=== PATIENT | female | born 1945 | race Caucasian/White ===

== ENCOUNTER 2016-10-30 22:55 | Emergency (ER) | payer BC, MEDICARE ==
--- NOTE | 2016-10-31 01:20 | ER Document Report ---
ED General - General Chief Complaint: Abdominal Pain Stated Complaint: ABDOMINAL PAIN TRAVEL OUTSIDE OF THE [place] IN LAST 30 DAYS: No Past Medical History - Social History Patient has suicidal ideation: No Patient has homicidal ideation: No Renal/ Medical History: Denies: Hx Peritoneal Dialysis Physical Exam - Vital signs Vitals: Temp Pulse Resp BP Pulse Ox 97.8 F 67 16 143/68 H 96 10/30/16 23:01 10/30/16 23:01 10/30/16 23:01 10/30/16 23:01 10/30/16 23:01 Course - Vital Signs Vital signs: Temp Pulse Resp BP Pulse Ox 97.8 F 67 16 143/68 H 96 10/30/16 23:01 10/30/16 23:01 10/30/16 23:01 10/30/16 23:01 10/30/16 23:01
--- NOTE | 2016-10-31 01:39 | ER Document Report ---
ED GI/ - General Mode of Arrival: Ambulatory Information source: Patient TRAVEL OUTSIDE OF THE [place] IN LAST 30 DAYS: No - HPI Patient complains to provider of: Abdominal pain, Flank pain Onset: Other - Refer to HPI Notes Timing/Duration: Sudden Similar symptoms previously: No Recently seen / treated by doctor: No - General Chief Complaint: Abdominal Pain Stated Complaint: ABDOMINAL PAIN Time Seen by Provider: 10/31/16 01:31 Notes: Patient is a 71 year old female presenting to the ED for abdominal pain, nausea , and back pain. Patient took a Tylenol with codine and within an hour she states she had sweats, left flank pain, abdominal pain, and nausea that lasted for about 1 hour. Patient has not taken Tylenol with codine in the past. Patient fell yesterday and has broken right wrist which is why she was given the Tylenol. Patient denies any medical history except for a kidney stone about 10-15 years ago. Patient has a surgical history of cholecystectomy, appendectomy, tonsillectomy, hysterectomy, gastric bypass, left knee replacement , and a johnny placed in her right femur. Denies any PCP but states she went to the urgent care to have her wrist examined. Patient is allergic to penicillin. (MIGUEL LAI) Past Medical History - General Information source: Patient - Social History Smoking Status: Never Smoker Cigarette use (# per day): No Chew tobacco use (# tins/day): No Smoking Education Provided: No Frequency of alcohol use: None Drug Abuse: None Family History: None Patient has suicidal ideation: No Patient has homicidal ideation: No - Medical History Medical History: Negative Past Surgical History: Reports: Hx Appendectomy, Hx Cholecystectomy, Hx Gastric Bypass Surgery - 25+ years ago, Hx Hysterectomy, Hx Orthopedic Surgery - L knee replacement, Johnny in R femur, Hx Tonsillectomy Review of Systems - Review of Systems Constitutional: No symptoms reported, Chills EENT: No symptoms reported Cardiovascular: No symptoms reported Respiratory: No symptoms reported Gastrointestinal: See HPI, Abdominal pain, Nausea Genitourinary: No symptoms reported Female Genitourinary: No symptoms reported Musculoskeletal: See HPI, Back pain Skin: No symptoms reported Hematologic/Lymphatic: No symptoms reported Neurological/Psychological: No symptoms reported -: Yes All other systems reviewed and negative Physical Exam - Vital signs Interpretation: Normal - Vital signs Vitals: Temp Pulse Resp BP Pulse Ox 97.8 F 67 16 143/68 H 96 10/30/16 23:01 10/30/16 23:01 10/30/16 23:01 10/30/16 23:01 10/30/16 23:01 - Notes Notes: GENERAL: Alert, interacts well. No acute distress. HEAD: Normocephalic, atraumatic. EYES: Appear normal. Pupils equal, round, and reactive to light. ENT: Moist mucus membranes, tongue midline. NECK: Full range of motion. Supple. Trachea midline. LUNGS: Clear to auscultation bilaterally, no wheezes, rales, or rhonchi. No respiratory distress. HEART: Regular rate and rhythm. No murmurs, gallops, or rubs. ABDOMEN: Obese. Soft, non-tender. Non-distended. Normal bowel sounds. BACK: No CVA tenderness to percussion. EXTREMITIES: Moves all 4 extremities spontaneously. Normal strength. No edema. Brace on the right wrist/forearm. NEUROLOGICAL: Alert and oriented x3. Normal speech. No focal neurological deficits. GSC 15. PSYCH: Normal affect, normal mood. SKIN: Warm, dry, normal turgor. No rashes or lesions noted. (MIGUEL LAI) Discharge - Discharge Clinical Impression: Adverse reaction to codeine Qualifiers: Encounter type: initial encounter Qualified Code(s): T40.2X5A - Adverse effect of other opioids, initial encounter Condition: Stable Disposition: HOME, SELF-CARE Additional Instructions: Your abdomen discomfort was most likely due to an adverse reaction to codeine. Take Tylenol and ibuprofen for your wrist pain if needed. Follow-up with your doctor if not improving. RETURN TO THE EMERGENCY ROOM IF ANY NEW OR WORSENING SYMPTOMS. Scribe Attestation: 10/31/16 02:54 I personally performed the services described in the documentation, reviewed and edited the documentation which was dictated to the scribe in my presence, and it accurately records my words and actions. (CELESTE JONES) Scribe Documentation - Scribe Written by Avelino:: Avelino Palacios, 10/31/2016 1:50 acting as scribe for :: Amber
[2016-10-31] MEDS ORDERED: ONDANSETRON ODT 4 MG TAB (6 TAB/DSPK) PO PRN (01:40)
[2016-10-31 02:21] LABS: APPEARANCE,URINE SLIGHTLY-CLOUDY; BILIRUBIN,URINE NEGATIVE (NEGATIVE); GLUCOSE, URINE NEGATIVE (NEGATIVE); KETONES,URINE NEGATIVE (NEGATIVE); LEUKOCYTE ESTERASE,URINE TRACE (NEGATIVE); NITRITE,URINE NEGATIVE (NEGATIVE); PROTEIN,URINE NEGATIVE (NEGATIVE); URINE SPECIFIC GRAVITY 1.006
[2016-10-31 03:08] VITALS: BP 141/62
== END 2016-10-31 03:08 | disposition home or self-care (01) ==
LOC: ER 22:55
DX: T40.2X5A Adverse effect of other opioids, initial encounter (principal); R10.9 Unspecified abdominal pain; R11.0 Nausea; M54.9 Dorsalgia, unspecified
CPT/HCPCS: 81001; 99284

== ENCOUNTER → 2019-06-21 | Outpatient (CLI) | payer MEDICARE ==
--- NOTE | 2019-06-21 12:22 | RADIOLOGY REPORT (SQ) ---
EXAM DESCRIPTION: CT CHEST WITHOUT COMPLETED DATE/TIME: 06/21/2019 9:28 am REASON FOR STUDY: (R91.8)OTHER NONSPECIFIC ABNORMAL FINDING OF LUNG FIELD R91.8 OTHER NONSPECIFIC A BNORMAL FINDING OF LUNG FIELD COMPARISON: [facility] chest 02/20/2010 TECHNIQUE: CT scan performed of the chest without intravenous contrast. Images reviewed with lung, soft tissue and bone windows. Reconstructed coronal and sagittal MPR images reviewed. All images st ored on PACS. All CT scanners at this facility use dose modulation, iterative reconstruction, and/or weight based d osing when appropriate to reduce radiation dose to as low as reasonably achievable (ALARA). [facility]: Dose Right [facility]: CareDose [facility]: Dose Right [facility]: Teradose 4D [facility]: Smart [place] RADIATION DOSE: CT Rad equipment meets quality standard of care and radiation dose reduction techniq ues were employed. CTDIvol: 12.5 mGy. DLP: 449 mGy-cm. mGy. LIMITATIONS: No technical limitations. FINDINGS: LUNGS AND PLEURA: Multiple calcified granulomas are present, unchanged from chest film . No worrisome pulmonary nodules. No acute infiltrates. No pleural effusion or pneumothorax. Minimal left basilar scarring adjacent to old healed lower rib fractures. HILAR AND MEDIASTINAL STRUCTURES: Multiple calcified hilar and mediastinal lymph nodes from old granu lomatous disease HEART AND VASCULAR STRUCTURES: Ascending thoracic aorta is 4.4 cm diameter. There is calcification a t the aortic valve, aortic stenosis may be present. Heavily calcified mitral annulus. No significan t coronary calcifications or pericardial effusion UPPER ABDOMEN: Gastric bypass. Post cholecystectomy. Liver and spleen calcified granulomas THYROID AND OTHER SOFT TISSUES: No masses. No adenopathy. BONES: No significant finding. HARDWARE: None in the chest. OTHER: No other significant findings. IMPRESSION: Granulomatous disease Possible aortic stenosis, ectasia ascending thoracic aorta with calcified aortic valve TECHNICAL DOCUMENTATION: JOB ID: [id number] Quality ID # [id number]: Final reports with documentation of one or more dose reduction techniques (e.g., Au tomated exposure control, adjustment of the mA and/or kV according to patient size, use of iterative reconstruction technique) 2010 [employer]- All Rights Reserved Reading location - IP/workstation name: [email or web address]
== END ==
LOC: RAD 08:54
PROVIDERS: ATTEND Internal Medicine Pulmonary Disease
DX: R91.8 Other nonspecific abnormal finding of lung field (principal)
CPT/HCPCS: 71250

== ENCOUNTER 2019-09-08 12:17 | Inpatient (IN) | payer MEDICARE ==
--- NOTE | 2019-09-08 13:09 | ER Document Report ---
Entered by KRISHNA GRAY SCRIBE 09/08/19 [id number] Acting as scribe for:CELESTE JONES MD ED General - General Chief Complaint: Knee Injury Stated Complaint: LEFT KNEE PAIN Time Seen by Provider: 09/08/19 12:54 Information source: Patient Notes: This 74-year-old female presents to the emergency department complaining of a left knee injury that occurred at home just prior to arrival. Patient explains that she fell when she was going to the bathroom. Patient said that her legs gave out and she landed on her left knee. Patient describes the pain as tingling when sitting still. Patient states that she has had a total knee replacement on her left knee. Patient denies fever. TRAVEL OUTSIDE OF THE [place] IN LAST 30 DAYS: No - Related Data Allergies/Adverse Reactions: codeine Allergy (Verified 09/08/19 14:27) Penicillins Allergy (Verified 09/08/19 14:27) Past Medical History - General Information source: Patient - Social History Smoking Status: Current Every Day Smoker Cigarette use (# per day): Yes - 1/2 pack per day Chew tobacco use (# tins/day): No Family History: None Patient has homicidal ideation: No Past Surgical History: Reports: Hx Appendectomy, Hx Cholecystectomy, Hx Gastric Bypass Surgery - 25+ years ago, Hx Hysterectomy, Hx Orthopedic Surgery - L knee replacement, Johnny in R femur, Hx Tonsillectomy Review of Systems - Review of Systems Constitutional: See HPI. denies: Fever EENT: No symptoms reported Cardiovascular: No symptoms reported Respiratory: No symptoms reported Gastrointestinal: No symptoms reported Genitourinary: No symptoms reported Female Genitourinary: No symptoms reported Musculoskeletal: See HPI, Other - Left knee injury Skin: No symptoms reported Hematologic/Lymphatic: No symptoms reported Neurological/Psychological: No symptoms reported -: Yes All other systems reviewed and negative Physical Exam - Vital signs Vitals: Temp Pulse Resp BP Pulse Ox 98.0 F 66 17 159/65 H 98 09/08/19 12:29 09/08/19 12:29 09/08/19 12:29 09/08/19 12:29 09/08/19 12:29 - Notes Notes: Physical Exam: General: Alert, appears well. Pleasant. HEENT: Normocephalic. Atraumatic. PERRL. Extraocular movements intact. Oropharynx clear. Neck: Supple. Non-tender. Respiratory: No respiratory distress. Clear and equal breath sounds bilaterally. Cardiovascular: Regular rate and rhythm. Abdominal: Obese. Non-tender. No distension. Normal Bowel Sounds. Back: No gross abnormalities. Extremities: Moves all four extremities. Upper extremities: Normal inspection. Normal ROM. Lower extremities: Left knee is swollen and tender to palpation. No edema. Neurological: Normal cognition. AAOx4. Normal speech. Psychological: Normal affect. Normal Mood. Skin: Warm. Dry. Normal color. Course - Vital Signs Vital signs: Temp Pulse Resp BP Pulse Ox 98.6 F 71 20 184/68 H 98 09/08/19 14:24 09/08/19 14:24 09/08/19 14:24 09/08/19 14:24 09/08/19 14:24 - Diagnostic Test Radiology reviewed: Image reviewed, Reports reviewed - Comminuted fracture of the distal femur adjacent to the knee prosthesis on the left. Approximately one half shaft width posterior displacement. - EKG Interpretation by Me EKG shows normal: Sinus rhythm, [place], Intervals, QRS Complexes, ST-T Waves Rate: Normal - 67 Rhythm: NSR Voltage: Consistant with LVH - Consults Vesna David NP Time consulted: 14:47 Consulted provider: will see as inpatient Dr. Jovel Time consulted: 14:45 Consulted provider: will see as inpatient - Will see the patient in the hospital and make arrangements for surgical repair. Discharge - Discharge Clinical Impression: Fracture of distal end of femur Qualifiers: Encounter type: initial encounter Fracture type: closed Fracture morphology: other fracture Laterality: left Qualified Code(s): S72.492A - Other fracture of lower end of left femur, initial encounter for closed fracture Condition: Stable Disposition: ADMITTED INPATIENT Admitting Provider: Navarro (Hospitalist) Unit Admitted: Medical Floor I personally performed the services described in the documentation, reviewed and edited the documentation which was dictated to the scribe in my presence, and it accurately records my words and actions.
--- NOTE | 2019-09-08 14:12 | RADIOLOGY REPORT (SQ) ---
EXAM DESCRIPTION: KNEE LEFT 2 VIEWS IMAGES COMPLETED DATE/TIME: 09/08/2019 1:51 pm REASON FOR STUDY: fall, swelling COMPARISON: None. NUMBER OF VIEWS: Two views. TECHNIQUE: AP and lateral radiographic images acquired of the left knee. LIMITATIONS: None. FINDINGS: MINERALIZATION: Osteopenia. BONES: Comminuted fracture of the distal femur adjacent to knee prosthesis. Approximately 1/2 shaft width posterior displacement. Tibial component appears intact. JOINT: See above. SOFT TISSUES: No foreign body. OTHER: No other significant finding. IMPRESSION: Fracture distal femur adjacent to knee prosthesis. TECHNICAL DOCUMENTATION: JOB ID: [id number] 2010 [employer]- All Rights Reserved Reading location - IP/workstation name: [email or web address]
[2019-09-08] MEDS ORDERED: ONDANSETRON HCL INJ/PF 4 MG/2 ML SDV IV ONE (14:33)
[2019-09-08] MEDS ORDERED: MORPHINE SULFATE 10 MG/ML INJ IV ONE (14:33)
--- NOTE | 2019-09-08 15:29 | PDOC CONSULTATION ---
Consultation Consult Date: 09/08/19 Attending physician:: CELESTE JONES Provider Consulted: DEEPALI BERNAL Consult reason:: Left distal femur periprosthetic fracture History of Present Illness Admission Date/PCP: 09/08/19 15:12 NIKOLAS SEGUNDO MD History of Present Illness: ALFONSO MORRIS is a 74 year old female Patient is a 74-year-old white female status post left knee arthroplasty approximately [address] Xavier Sellers in [place]. Patient did well following the surgery but fell recently and sustained a left lower extremity injury with inability to weight-bear. She was brought to the emergency room where distal periprosthetic femur fracture was notified radiographically. Orthopedics was consulted for fracture management. Past Medical History Cardiac Medical History: Reports: Hypertension Past Surgical History Past Surgical History: Reports: Appendectomy, Cholecystectomy, Gastric Bypass Surgery - 25+ years ago, Hysterectomy, Orthopedic Surgery - L knee replacement, Johnny in R femur, Tonsillectomy Social History Information Source: Patient, [facility] Records Smoking Status: Current Every Day Smoker Family History Family History: None Parental Family History Reviewed: No Children Family History Reviewed: No Sibling(s) Family History Reviewed.: No Medication/Allergy Allergies/Adverse Reactions: codeine Allergy (Verified 09/08/19 14:27) Penicillins Allergy (Verified 09/08/19 14:27) Review of Systems All systems: as per H Physical Exam Vital Signs: Temp Pulse Resp BP Pulse Ox 37.0 C 71 20 184/68 H 98 09/08/19 14:24 09/08/19 14:24 09/08/19 14:24 09/08/19 14:24 09/08/19 14:24 Intake & Output 09/07/19 09/08/19 09/09/19 06:59 06:59 06:59 Weight 97.522 kg Physical Exam: Patient is an overweight middle-aged white female lying in a hospital guraurora. The patient is not unduly uncomfortable. She is alert, oriented, and appropriate. General appearance: PRESENT: no acute distress, mild distress Respiratory exam: PRESENT: unlabored Cardiovascular exam: PRESENT: RRR Pulses: PRESENT: +1 pedal pulses bilateral Vascular exam: PRESENT: normal capillary refill GI/Abdominal exam: PRESENT: soft Rectal exam: PRESENT: deferred Extremities exam: PRESENT: other - Left lower extremity is elevated on pillows. There is considerable swelling about the distal thigh as well as tenderness. There is no skin abnormalities. Distal neurovascular examination is intact. Neurological exam: PRESENT: alert, awake, oriented to person, oriented to place, oriented to time, oriented to situation. ABSENT: motor sensory deficit Skin exam: PRESENT: dry, intact, warm. ABSENT: cyanosis, rash Results Impressions: Knee X-Ray 09/08/19 13:04 IMPRESSION: Fracture distal femur adjacent to knee prosthesis. Status: Imported from PACS Assessment & Plan - Diagnosis (1) Fracture of distal end of femur Qualifiers: Encounter type: initial encounter Fracture type: closed Fracture morphology: other fracture Laterality: left Qualified Code(s): S72.492A - Other fracture of lower end of left femur, initial encounter for closed fracture Plan: Tentative plan will be for reconstruction of the distal femur in some fashion. The simplest approach would be open reduction internal fixation with an intramedullary nail. I am somewhat concerned that there is not sufficient bone stock attached to the femoral component to enable this approach but the plan would be to start in this direction. If sufficient bone stock does not exist to allow capture of this fragment with screws, the alternative plan would be for a vision knee arthroplasty with a distal femoral replacement. Unfortunately the lateral hardware is not kept regionally and needs to be brought in. It is not feasible to bring this in before Thursday. The patient has tentatively been to the operative schedule for Thursday anticipating medical clearance. - Time Time Spent: 50 to 70 Minutes Anticipated discharge: SNF Within: Other
[2019-09-08 16:09] LABS: ABSOLUTE LYMPHOCYTES (AUTO) 1.7 10^3/uL (0.5-4.7); ABSOLUTE MONOCYTES (AUTO) 0.6 10^3/uL (0.1-1.4); ABSOLUTE NEUT (AUTO) 9.3 10^3/uL (1.7-8.2); BASOPHILS % (AUTO) 0.4 % (0-2); EOSINOPHILS % (AUTO) 0.1 % (0-6); HEMATOCRIT 32.2 % (36.0-47.0); HEMOGLOBIN 10.5 g/dL (12.0-15.5); MEAN CORPUSCULAR HEMOGLOBIN 25.9 pg (27.0-33.4); MEAN CORPUSCULAR HGB CONC 32.5 g/dL (32.0-36.0); MEAN CORPUSCULAR VOLUME 80 fl (80-97); MONOCYTES % (AUTO) 4.8 % (3-13); PLATELET COUNT 282 10^3/uL (150-450); RED BLOOD COUNT 4.04 10^6/uL (3.72-5.28); RED CELL DISTRIBUTION WIDTH 16.9 % (11.5-14.0); SEGMENTED NEUTROPHILS % (AUTO) 79.7 % (42-78); TOTAL CELLS COUNTED % (AUTO) 100 %; WHITE BLOOD COUNT 11.7 10^3/uL (4.0-10.5)
[2019-09-08 16:10] LABS: APPEARANCE,URINE CLEAR; BILIRUBIN,URINE NEGATIVE (NEGATIVE); COLOR,URINE YELLOW; GLUCOSE, URINE NEGATIVE (NEGATIVE); KETONES,URINE NEGATIVE (NEGATIVE); LEUKOCYTE ESTERASE,URINE NEGATIVE (NEGATIVE); NITRITE,URINE NEGATIVE (NEGATIVE); PROTEIN,URINE NEGATIVE (NEGATIVE); URINE SPECIFIC GRAVITY 1.014
--- NOTE | 2019-09-08 16:11 | RADIOLOGY REPORT (SQ) ---
EXAM DESCRIPTION: CHEST SINGLE VIEW IMAGES COMPLETED DATE/TIME: 09/08/2019 3:59 pm REASON FOR STUDY: Preoperative chest x-ray COMPARISON: 02/20/2010 EXAM PARAMETERS: NUMBER OF VIEWS: One view. TECHNIQUE: Single frontal radiographic view of the chest acquired. RADIATION DOSE: NA LIMITATIONS: None. FINDINGS: LUNGS AND PLEURA: Scattered subcentimeter calcified granulomas. No acute findings. MEDIASTINUM AND HILAR STRUCTURES: No masses. Contour normal. HEART AND VASCULAR STRUCTURES: Stable heart size. Normal vasculature. BONES: No acute findings. HARDWARE: None in the chest. OTHER: No other significant finding. IMPRESSION: NO ACUTE RADIOGRAPHIC FINDING IN THE CHEST. TECHNICAL DOCUMENTATION: JOB ID: [id number] 2010 [email or web address]- All Rights Reserved Reading location - IP/workstation name: [email or web address]
[2019-09-08 16:26] LABS: ALBUMIN 3.4 g/dL (3.5-5.0); ALKALINE PHOSPHATASE 104 U/L (38-126); ASPARTATE AMINO TRANSFERASE 30 U/L (14-36); BILIRUBIN,TOTAL 0.4 mg/dL (0.2-1.3); BLOOD UREA NITROGEN 13 mg/dL (7-20); CALCIUM 8.9 mg/dL (8.4-10.2); CARBON DIOXIDE 27 mmol/L (22-30); CHLORIDE 106 mmol/L (98-107); GLUCOSE 132 mg/dL (75-110); POTASSIUM 4.4 mmol/L (3.6-5.0); TOTAL PROTEIN 6.4 g/dL (6.3-8.2)
[2019-09-08 16:33] LABS: ANION GAP 3 (5-19)
[2019-09-08] MEDS ORDERED: OXYCODONE-ACETAMINOPHEN 5-325 MG TABLET PO PRN (16:40)
[2019-09-08] MEDS ORDERED: PROMETHAZINE HCL INJ 25 MG/1 ML VIAL IV PRN (16:40)
[2019-09-08] MEDS ORDERED: MAG HYDROX/AL HYDROX/SIMETH SUSP 30 ML UDCUP PO PRN (16:40)
[2019-09-08] MEDS ORDERED: IPRATROPIUM/ALBUTEROL 0.5-2.5 MG/3 ML AMPUL NEB PRN (16:40)
[2019-09-08] MEDS ORDERED: ONDANSETRON HCL INJ/PF 4 MG/2 ML SDV IV PRN (16:40)
[2019-09-08] MEDS ORDERED: MAGNESIUM HYDROXIDE SUSP 30 ML UDCUP PO PRN (16:40)
[2019-09-08] MEDS ORDERED: MORPHINE SULFATE 10 MG/ML INJ IV PRN (16:45)
[2019-09-08] MEDS ORDERED: HYDRALAZINE HCL INJ/PF 20 MG/1 ML SDV IV PRN (16:57)
--- NOTE | 2019-09-08 17:00 | PDOC H&P ---
History of Present Illness Admission Date/PCP: 09/08/19 15:12 NIKOLAS BADILLO MD Patient complains of: right leg pain History of Present Illness: ALFONSO MORRIS is a 74 year old female with a past medical history of granulomatosis disease (followed by Dr. Badillo), prior gastric bypass with continued morbid obesity, and tobacco dependence with continuous use who pr esented to the emergency department today following a mechanical fall in the kitchen at home. She denies any presyncopal/vasovagal symptoms. Evaluation in the emergency department revealed Hypertension but otherwise stable vital signs, mild leukocytosis, mild anemia (hemoglobin 10.5), unremarkable chemistry, and negative urine. Chest x-ray demonstrates cardiomegaly but no acute processes. EKG shows normal sinus rhythm with LVH. Knee x-ray reveals fracture of the distal femur adjacent to the knee prosthesis. Dr. Jovel is consulted for orthopedic repair. Patient is referred to the hospitalist service for admission and management of the above-stated complaints and findings. Past Medical History Cardiac Medical History: Reports: Hypertension Denies: Coronary Artery Disease, Myocardial Infarction, Hyperlipidema Pulmonary Medical History: Reports: None EENT Medical History: Reports: None Neurological Medical History: Reports: None Endocrine Medical History: Reports: Obesity Denies: Diabetes Mellitus Type 2, Hypothyroidism Renal/ Medical History: Reports: None Malignancy Medical History: Reports: None GI Medical History: Reports: None Musculoskeltal Medical History: Reports: Arthritis Skin Medical History: Reports: None Psychiatric Medical History: Reports: None Traumatic Medical History: Reports: None Hematology: Reports: None Infectious Medical History: Reports: None Past Surgical History Past Surgical History: Reports: Appendectomy, Cholecystectomy, Gastric Bypass Surgery - 25+ years ago, Hysterectomy, Orthopedic Surgery - L knee replacement, Johnny in R femur, Tonsillectomy Social History Information Source: Patient Lives with: Family Smoking Status: Current Every Day Smoker Cigarettes Packs Per Day: 0.8 Electronic Cigarette use?: No Frequency of Alcohol Use: Rare Hx Recreational Drug Use: No Hx Prescription Drug Abuse: No - Advance Directive Resuscitation Status: Full Code Family History Family History: Reviewed & Not Pertinent Parental Family History Reviewed: Yes Children Family History Reviewed: Yes Sibling(s) Family History Reviewed.: Yes Medication/Allergy Home Medications: Calcium Carbonate [Calcium] 500 mg PO DAILY 09/08/19 Cholecalciferol (Vitamin D3) [Vitamin D3 1000 Unit Tablet] 1,000 unit PO DAILY 09/08/19 Cyanocobalamin (Vitamin B-12) [Vitamin B-12 1000 mcg Tablet] 1,000 mcg PO DAILY 09/08/19 Pediatric Multivitamin No.101 [Gummy] 1 tab PO DAILY 09/08/19 Allergies/Adverse Reactions: codeine Allergy (Verified 09/08/19 14:27) Penicillins Allergy (Verified 09/08/19 14:27) Review of Systems Constitutional: ABSENT: chills, fever(s), headache(s), weight gain, weight loss Eyes: ABSENT: visual disturbances Ears: ABSENT: hearing changes Cardiovascular: ABSENT: chest pain, dyspnea on exertion, edema, orthropnea, palpitations Respiratory: ABSENT: cough, hemoptysis Gastrointestinal: ABSENT: abdominal pain, constipation, diarrhea, hematemesis, hematochezia, nausea, vomiting Genitourinary: ABSENT: dysuria, hematuria Musculoskeletal: PRESENT: as per HPI Integumentary: ABSENT: rash, wounds Neurological: ABSENT: abnormal gait, abnormal speech, confusion, dizziness, focal weakness, syncope Psychiatric: ABSENT: anxiety, depression, homidical ideation, suicidal ideation Endocrine: ABSENT: cold intolerance, heat intolerance, polydipsia, polyuria Hematologic/Lymphatic: ABSENT: easy bleeding, easy bruising Physical Exam Vital Signs: Temp Pulse Resp BP Pulse Ox 98.6 F 71 20 184/68 H 98 09/08/19 14:24 09/08/19 14:24 09/08/19 14:24 09/08/19 14:24 09/08/19 14:24 Intake & Output 09/07/19 09/08/19 09/09/19 06:59 06:59 06:59 Weight 97.522 kg General appearance: PRESENT: no acute distress, obese, well-developed, well-nourished Head exam: PRESENT: atraumatic, normocephalic Eye exam: PRESENT: conjunctiva pink, EOMI, PERRLA. ABSENT: scleral icterus Mouth exam: PRESENT: moist, tongue midline Neck exam: ABSENT: carotid bruit, JVD, lymphadenopathy, thyromegaly Respiratory exam: PRESENT: clear to auscultation cierra, symmetrical, unlabored. ABSENT: rales, rhonchi, wheezes Cardiovascular exam: PRESENT: RRR, +S1, +S2. ABSENT: diastolic murmur, rubs, systolic murmur Pulses: PRESENT: normal dorsalis pedis pul Vascular exam: PRESENT: normal capillary refill GI/Abdominal exam: PRESENT: normal bowel sounds, soft. ABSENT: distended, guarding, mass, organolmegaly, rebound, tenderness Rectal exam: PRESENT: deferred Gentrourinary exam: PRESENT: indwelling catheter Extremities exam: PRESENT: tenderness, other - RLE shortened and externally rotated. ABSENT: calf tenderness, clubbing, pedal edema Neurological exam: PRESENT: alert, awake, oriented to person, oriented to place, oriented to time, oriented to situation, CN II-XII grossly intact. ABSENT: motor sensory deficit Psychiatric exam: PRESENT: appropriate affect, normal mood. ABSENT: homicidal ideation, suicidal ideation Skin exam: PRESENT: dry, intact, warm. ABSENT: cyanosis, rash Results Laboratory Results: 09/08/19 15:49 09/08/19 15:49 09/08/19 09/08/19 09/08/19 15:49 15:49 15:49 WBC 11.7 H RBC 4.04 Hgb 10.5 L Hct 32.2 L MCV 80 MCH 25.9 L MCHC 32.5 RDW 16.9 H Plt Count 282 Seg Neutrophils % 79.7 H Sodium 136.1 L Potassium 4.4 Chloride 106 Carbon Dioxide 27 Anion Gap 3 L BUN 13 Creatinine 0.67 Est GFR ( Amer) > 60 Glucose 132 H Calcium 8.9 Total Bilirubin 0.4 AST 30 Alkaline Phosphatase 104 Total Protein 6.4 Albumin 3.4 L Urine Color YELLOW Urine Appearance CLEAR Urine pH 7.0 Ur Specific [place] 1.014 Urine Protein NEGATIVE Urine Glucose (UA) NEGATIVE Urine Ketones NEGATIVE Urine Blood NEGATIVE Urine Nitrite NEGATIVE Ur Leukocyte Esterase NEGATIVE Urine WBC (Auto) 0 Urine RBC (Auto) 2 Impressions: Knee X-Ray 09/08/19 13:04 IMPRESSION: Fracture distal femur adjacent to knee prosthesis. Chest X-Ray 09/08/19 14:55 IMPRESSION: NO ACUTE RADIOGRAPHIC FINDING IN THE CHEST. Assessment and Plan - Diagnosis (1) Fracture of distal end of femur Qualifiers: Encounter type: initial encounter Fracture type: closed Fracture mo rphology: other fracture Laterality: left Qualified Code(s): S72.492A - Other fracture of lower end of left femur, initial encounter for closed fracture Is this a current diagnosis for this admission?: Yes Plan: Patient is admitted to the medical floor. Orthopedics is consulted. They do not anticipate readiness for surgery until Thursday; therefore will allow regular diet. Preop DVT prophylaxis is subcu Heparin; postoperative DVT prophylaxis per orthopedics expertise. Analgesics as needed. Harry catheter due to prolonged bedbound status. We will obtain echocardiogram for preoperative clearance. Discharge planning consulted for postoperative rehab needs. (2) Hypertension Qualifiers: Hypertension type: essential hypertension Qualified Code(s): I10 - Essential (primary) hypertension Is this a current diagnosis for this admission?: Yes Plan: Patient denies history of hypertension and is not on home medications. However, noted to have Blood pressure 154/51. Provide adequate pain control. IV hydralazine as needed for blood pressure control. Consider need to start oral antihypertensives. (3) Obesity (BMI 30.0-34.9) Is this a current diagnosis for this admission?: Yes Plan: BMI 34.7. Prior gastric bypass surgery. Dietary discretion and lifestyle modification are encouraged. (4) Tobacco dependence Is this a current diagnosis for this admission?: Yes Plan: Smoking cessation encouraged. Nicotine replacement therapies provided. - Time Time Spent with patient: 35 or more minutes Medications reviewed and adjusted accordingly: Yes Anticipated discharge: SNF
[2019-09-08] MEDS: OXYCODONE-ACETAMINOPHEN 5-325 MG TABLET PO PRN (17:40)
--- NOTE | 2019-09-08 18:53 | XCELERA REPORT ---
[address] [address] Transthoracic Echocardiogram Report Name: ALFONSO MORRIS Age: 74 yrs Gender: Female : 1945 Patient Status: Inpatient Patient Location: [address] [place] [address] Study Date: 09/08/2019 05:39 PM History: Pre-op Height: 62 in Weight: 215 lb BSA: 2.0 m2 Procedure: A complete two-dimensional transthoracic echocardiogram was performed (2D, M-mode, spectral and color flow Doppler). The study was technically difficult with many images being suboptimal in quality. Reason For Study: pre-op Previous Evaluation: No previous studies were available. History: Smoker: current. Mechanical fall Pre-op Surgery. Ordering Physician: ANGELINA CAMPUZANO Performed By: Simran Kam Interpretation Summary The study was technically difficult with many images being suboptimal in quality. Left ventricular systolic function is normal. The Ejection Fraction estimate is 55-60% Doppler measurements suggest pseudonormalized left ventricular relaxation, which is associated with grade II/IV or mild to moderate diastolic dysfunction The right ventricle is normal in size and function. There is a trace amount of mitral regurgitation There is no aortic valve stenosis There is a mild amount of tricuspid regurgitation There is mild to moderate pulmonary hypertension by echo There is no pericardial effusion. MMode/2D Measurements & Calculations RVDd: 2.8 cm LVIDd: 4.9 cm FS: 39.9 % Ao root diam: 3.8 cm IVSd: 0.94 cm LVIDs: 2.9 cm EDV(Teich): 110.2 ml Ao root area: 11.5 cm2 LVPWd: 0.86 cm ESV(Teich): 32.6 ml LA dimension: 3.6 cm EF(Teich): 70.4 % Doppler Measurements & Calculations MV E max lizeth: MV P1/2t max lizeth: Ao V2 max: AI max lizeth: 124.9 cm/sec 108.6 cm/sec 160.8 cm/sec 412.8 cm/sec MV A max lizeth: MV P1/2t: 73.3 msec Ao max PG: AI max P.5 cm/sec MVA(P1/2t): 3.0 cm2 10.3 mmHg 68.2 mmHg MV E/A: 1.1 MV dec slope: AI dec slope: 247.6 cm/sec2 434.1 cm/sec2 AI P1/2t: MV dec time: 0.21 sec 488.4 msec LV V1 max PG: PA V2 max: TR max lizeth: AV P1/2t-pr_phl: 4.8 mmHg 92.8 cm/sec 348.8 cm/sec 420.9 msec LV V1 max: PA max P.4 mmHg TR max P.1 cm/sec 48.7 mmHg MV P1/2t-pr_phl: 73.3 msec Left Ventricle The left ventricle is grossly normal size. There is mild concentric left ventricular hypertrophy. Left ventricular systolic function is normal. The Ejection Fraction estimate is 55-60%. Doppler measurements suggest pseudonormalized left ventricular relaxation, which is associated with grade II/IV or mild to moderate diastolic dysfunction. No regional wall motion abnormalities noted. Right Ventricle The right ventricle is normal in size and function. Atria The right atrium is normal. The left atrium is mildly dilated. Mitral Valve There is mild to moderate mitral annular calcification. There is no evidence of mitral valve prolapse. There is no mitral valve stenosis. There is a trace amount of mitral regurgitation. Aortic Valve The aortic valve is sclerotic and shows some degree of functional abnormality. The aortic valve is not well visualized secondary to technical limitations. There is no aortic valve stenosis. There is a mild amount of aortic regurgitation. Tricuspid Valve The tricuspid valve is normal in structure and function. There is a mild amount of tricuspid regurgitation. Right ventricular systolic pressure is estimated to be elevated at 50-60mmHg. There is mild to moderate pulmonary hypertension by echo. Pulmonic Valve The pulmonic valve is not well visualized. There is a trace amount of pulmonic regurgitation. Great Vessels The aortic root is normal size. Moderate atherosclerotic plaque(s) in the descending aorta. The inferior vena cava appeared normal and decreased > 50% with respiration (RAP 5-10 mmHg). Effusions There is no pericardial effusion. : ANGELINA CAMPUZANO Anil
[2019-09-08] MEDS: HEPARIN SOD (PORCINE) 5,000 UNIT/ML 1 ML VIAL SUBCUT SCH (21:52)
[2019-09-08] MEDS: FAMOTIDINE 20 MG TABLET PO SCH (21:52)
[2019-09-09 06:06] LABS: HEMATOCRIT 31.8 % (36.0-47.0); HEMOGLOBIN 10.4 g/dL (12.0-15.5); MEAN CORPUSCULAR HEMOGLOBIN 26.2 pg (27.0-33.4); MEAN CORPUSCULAR HGB CONC 32.8 g/dL (32.0-36.0); MEAN CORPUSCULAR VOLUME 80 fl (80-97); PLATELET COUNT 244 10^3/uL (150-450); RED BLOOD COUNT 3.99 10^6/uL (3.72-5.28); RED CELL DISTRIBUTION WIDTH 16.5 % (11.5-14.0); WHITE BLOOD COUNT 7.9 10^3/uL (4.0-10.5)
[2019-09-09] MEDS: HEPARIN SOD (PORCINE) 5,000 UNIT/ML 1 ML VIAL SUBCUT SCH ×3 (06:13→21:28)
[2019-09-09 06:28] LABS: BLOOD UREA NITROGEN 14 mg/dL (7-20); CALCIUM 8.9 mg/dL (8.4-10.2); CARBON DIOXIDE 28 mmol/L (22-30); CHLORIDE 105 mmol/L (98-107); GLUCOSE 114 mg/dL (75-110); POTASSIUM 4.6 mmol/L (3.6-5.0)
[2019-09-09 06:58] LABS: ANION GAP 4 (5-19)
[2019-09-09] MEDS: OXYCODONE-ACETAMINOPHEN 5-325 MG TABLET PO PRN ×2 (07:48→19:38)
[2019-09-09] MEDS: CHOLECALCIFEROL (D3) 1,000 UNIT (25 MCG) TABLET PO SCH (09:35)
[2019-09-09] MEDS: NICOTINE 21 MG/24 HR PATCH.TD24 TD SCH (09:35)
[2019-09-09] MEDS: FAMOTIDINE 20 MG TABLET PO SCH ×2 (09:36→21:28)
[2019-09-09] MEDS: CALCIUM CARBONATE 600 MG TABLET PO SCH (09:36)
[2019-09-09] MEDS: MULTIVITAMINS W-IRON TABLET, CHEWABLE PO SCH (09:36)
[2019-09-09] MEDS: DOCUSATE SODIUM 100 MG CAPSULE PO SCH (09:36)
[2019-09-09] MEDS ORDERED: [UNRECOGNIZED DRUG - REMARK] PO SCH (10:00)
[2019-09-09] MEDS ORDERED: (PENDING PHARMACY ID) (Calcium Carbonate [Calcium] 500 MG) PO SCH (10:00)
--- NOTE | 2019-09-09 12:40 | EKG REPORT ---
SEVERITY:- ABNORMAL ECG - SINUS RHYTHM PROBABLE LVH WITH SECONDARY REPOL ABNRM : Confirmed by: Kvng Broderick 09-Sep-2019 12:40:09
--- NOTE | 2019-09-09 13:20 | PDOC PROGRESS REPORT ---
Subjective Progress Note for:: 09/09/19 Subjective:: Patient lying in bed comfortably pain controlled. No issues overnight. Denies chest pain or shortness of breath. Does have occasional cough Reason For Visit: RIGHT FEMUR FRACTURE Physical Exam Vital Signs: Temp Pulse Resp BP Pulse Ox 98.7 F 73 18 159/55 H 93 09/09/19 07:35 09/09/19 08:12 09/09/19 08:12 09/09/19 07:35 09/09/19 08:12 Intake & Output 09/08/19 09/09/19 09/10/19 06:59 06:59 06:59 Intake Total 590 Output Total 200 Balance 390 Weight 91.8 kg Musculoskeletal exam: PRESENT: other - Left lower extremity: Knee immobilizer open no evidence of skin breakdown. No calf tenderness. Moderate thigh swelling. Intact plantarflexion/dorsiflexion. No sensory deficits. Results Laboratory Results: 09/09/19 05:42 09/09/19 05:42 09/08/19 09/08/19 09/08/19 15:49 15:49 15:49 WBC 11.7 H RBC 4.04 Hgb 10.5 L Hct 32.2 L MCV 80 MCH 25.9 L MCHC 32.5 RDW 16.9 H Plt Count 282 Seg Neutrophils % 79.7 H Sodium 136.1 L Potassium 4.4 Chloride 106 Carbon Dioxide 27 Anion Gap 3 L BUN 13 Creatinine 0.67 Est GFR ( Amer) > 60 Glucose 132 H Calcium 8.9 Total Bilirubin 0.4 AST 30 Alkaline Phosphatase 104 Total Protein 6.4 Albumin 3.4 L TSH Urine Color YELLOW Urine Appearance CLEAR Urine pH 7.0 Ur Specific [place] 1.014 Urine Protein NEGATIVE Urine Glucose (UA) NEGATIVE Urine Ketones NEGATIVE Urine Blood NEGATIVE Urine Nitrite NEGATIVE Ur Leukocyte Esterase NEGATIVE Urine WBC (Auto) 0 Urine RBC (Auto) 2 09/09/19 09/09/19 09/09/19 05:42 05:42 05:42 WBC 7.9 RBC 3.99 Hgb 10.4 L Hct 31.8 L MCV 80 MCH 26.2 L MCHC 32.8 RDW 16.5 H Plt Count 244 Seg Neutrophils % Sodium 137.2 Potassium 4.6 Chloride 105 Carbon Dioxide 28 Anion Gap 4 L BUN 14 Creatinine 0.76 Est GFR ( Amer) > 60 Glucose 114 H Calcium 8.9 Total Bilirubin AST Alkaline Phosphatase Total Protein Albumin TSH 3.22 Urine Color Urine Appearance Urine pH Ur Specific [place] Urine Protein Urine Glucose (UA) Urine Ketones Urine Blood Urine Nitrite Ur Leukocyte Esterase Urine WBC (Auto) Urine RBC (Auto) Impressions: Knee X-Ray 09/08/19 13:04 IMPRESSION: Fracture distal femur adjacent to knee prosthesis. Chest X-Ray 09/08/19 14:55 IMPRESSION: NO ACUTE RADIOGRAPHIC FINDING IN THE CHEST. Assessment & Plan - Diagnosis (1) Fracture of distal end of femur Qualifiers: Encounter type: initial encounter Fracture type: closed Fracture morphology: other fracture Laterality: left Qualified Code(s): S72.492A - Other fracture of lower end of left femur, initial encounter for closed fracture Is this a current diagnosis for this admission?: Yes Plan: Current plan is to proceed with reconstruction of the distal femur including open reduction fixation with intramedullary nail versus distal femoral placement. Components have been ordered and tentative plan is to proceed with operative intervention on 09/12/2019. In the meantime patient is to maintain nonweightbearing left lower extremity. We will continue pain management. She will be n.p.o. after midnight 09/11/2019 with anticoagulation held for the next day. - Time Time Spent with patient: Less than 15 minutes
--- NOTE | 2019-09-09 18:08 | PDOC PROGRESS REPORT ---
Subjective Progress Note for:: 09/09/19 Reason For Visit: RIGHT FEMUR FRACTURE Physical Exam Vital Signs: Temp Pulse Resp BP Pulse Ox 99.1 F 70 15 148/53 H 93 09/09/19 15:59 09/09/19 15:59 09/09/19 15:59 09/09/19 15:59 09/09/19 15:59 Intake & Output 09/08/19 09/09/19 09/10/19 06:59 06:59 06:59 Intake Total 590 Output Total 200 375 Balance 390 -375 Weight 91.8 kg General appearance: PRESENT: no acute distress, cooperative, obese, well- developed, well-nourished Head exam: PRESENT: atraumatic, normocephalic Eye exam: PRESENT: conjunctiva pink, EOMI, PERRLA. ABSENT: scleral icterus Mouth exam: PRESENT: moist, tongue midline Respiratory exam: PRESENT: clear to auscultation cierra, symmetrical, unlabored. ABSENT: rales, rhonchi, wheezes Cardiovascular exam: PRESENT: RRR. ABSENT: diastolic murmur, rubs, systolic murmur Pulses: PRESENT: normal dorsalis pedis pul Vascular exam: PRESENT: normal capillary refill Gentrourinary exam: PRESENT: indwelling catheter Extremities exam: PRESENT: tenderness - RLE is shortened; knee immobilizer in place. ABSENT: calf tenderness, clubbing, full ROM - RLE, pedal edema Neurological exam: PRESENT: alert, awake, oriented to person, oriented to place, oriented to time, oriented to situation, CN II-XII grossly intact. ABSENT: motor sensory deficit Psychiatric exam: PRESENT: appropriate affect, normal mood. ABSENT: homicidal ideation, suicidal ideation Skin exam: PRESENT: dry, intact, warm. ABSENT: cyanosis, rash Results Laboratory Results: 09/09/19 05:42 09/09/19 05:42 09/09/19 09/09/19 09/09/19 05:42 05:42 05:42 WBC 7.9 RBC 3.99 Hgb 10.4 L Hct 31.8 L MCV 80 MCH 26.2 L MCHC 32.8 RDW 16.5 H Plt Count 244 Sodium 137.2 Potassium 4.6 Chloride 105 Carbon Dioxide 28 Anion Gap 4 L BUN 14 Creatinine 0.76 Est GFR ( Amer) > 60 Glucose 114 H Calcium 8.9 TSH 3.22 Impressions: Knee X-Ray 09/08/19 13:04 IMPRESSION: Fracture distal femur adjacent to knee prosthesis. Chest X-Ray 09/08/19 14:55 IMPRESSION: NO ACUTE RADIOGRAPHIC FINDING IN THE CHEST. Assessment and Plan - Diagnosis (1) Fracture of distal end of femur Qualifiers: Encounter type: initial encounter Fracture type: closed Fracture morphology: other fracture Laterality: left Qualified Code(s): S72.492A - Other fracture of lower end of left femur, initial encounter for closed fracture Is this a current diagnosis for this admission?: Yes Plan: Patient is admitted to the medical floor. Echocardiogram for preoperative evaluation is reassuring; mild LV diastolic dysfunction, nml LVEF, mild pulmonary HTN Orthopedics is consulted. They do not anticipate readiness for surgery until Thursday; therefore will allow regular diet. Preop DVT prophylaxis is subcu Heparin; postoperative DVT prophylaxis per orthopedics expertise. Analgesics as needed. Harry catheter due to prolonged bedbound status. Discharge planning consulted for postoperative rehab needs. (2) Hypertension Qualifiers: Hypertension type: essential hypertension Qualified Code(s): I10 - Essential (primary) hypertension Is this a current diagnosis for this admission?: Yes Plan: Patient denies history of hypertension and is not on home medications. However, noted to have Blood pressure 154/51. Provide adequate pain control. IV hydralazine as needed for blood pressure control. Consider need to start oral antihypertensives. (3) Obesity (BMI 30.0-34.9) Is this a current diagnosis for this admission?: Yes Plan: BMI 34.7. Prior gastric bypass surgery. Dietary discretion and lifestyle modification are encouraged. (4) Tobacco dependence Is this a current diagnosis for this admission?: Yes Plan: Smoking cessation encouraged. Nicotine replacement therapies provided. - Time Time Spent with patient: 25-34 minutes Medications reviewed and adjusted accordingly: Yes Anticipated discharge: SNF
[2019-09-09] MEDS: NORMAL SALINE 1000 ML 1,000 ML IV PRN (18:20)
[2019-09-10] MEDS: HEPARIN SOD (PORCINE) 5,000 UNIT/ML 1 ML VIAL SUBCUT SCH ×3 (05:40→21:45)
[2019-09-10] MEDS: NICOTINE 21 MG/24 HR PATCH.TD24 TD SCH (09:45)
[2019-09-10] MEDS: CHOLECALCIFEROL (D3) 1,000 UNIT (25 MCG) TABLET PO SCH (09:46)
[2019-09-10] MEDS: MULTIVITAMINS W-IRON TABLET, CHEWABLE PO SCH (09:46)
[2019-09-10] MEDS: DOCUSATE SODIUM 100 MG CAPSULE PO SCH (09:46)
[2019-09-10] MEDS: FAMOTIDINE 20 MG TABLET PO SCH ×2 (09:46→21:45)
[2019-09-10] MEDS: CALCIUM CARBONATE 600 MG TABLET PO SCH (09:46)
[2019-09-10] MEDS: NORMAL SALINE 1000 ML 1,000 ML IV PRN (13:03)
--- NOTE | 2019-09-10 14:38 | PDOC PROGRESS REPORT ---
Subjective Progress Note for:: 09/10/19 Subjective:: ALFONSO MORRIS is a 74 year old female with a past medical history of g ranulomatosis disease (followed by Dr. Badillo), prior gastric bypass with continued morbid obesity, and tobacco dependence with continuous use who was admitted 09/08/2019 with left distal femur fracture. She is seen on morning rounds. She is found resting in bed, comfortably, on room air. She reports that her pain is adequately controlled at present. Viewed importance of incentive spirometry.status. Has fever, chills, chest pain, palpitations, dyspnea, cough, abdominal pain, nausea and vomiting. She has no questions or concerns at this time. No concerns per nursing. Reason For Visit: RIGHT FEMUR FRACTURE Physical Exam Vital Signs: Temp Pulse Resp BP Pulse Ox 98.8 F 79 20 160/50 H 96 09/10/19 11:47 09/10/19 11:47 09/10/19 11:47 09/10/19 11:47 09/10/19 11:47 Intake & Output 09/09/19 09/10/19 09/11/19 06:59 06:59 06:59 Intake Total 590 1240 Output Total 200 750 Balance 390 -750 1240 Weight 91.8 kg 90.8 kg General appearance: PRESENT: no acute distress, cooperative, obese, well- developed, well-nourished Head exam: PRESENT: atraumatic, normocephalic Eye exam: PRESENT: conjunctiva pink, EOMI, PERRLA. ABSENT: scleral icterus Mouth exam: PRESENT: moist, tongue midline Respiratory exam: PRESENT: clear to auscultation cierra, symmetrical, unlabored. ABSENT: rales, rhonchi, wheezes Cardiovascular exam: PRESENT: RRR, +S1, +S2. ABSENT: diastolic murmur, rubs, systolic murmur Pulses: PRESENT: normal dorsalis pedis pul Vascular exam: PRESENT: normal capillary refill Gentrourinary exam: PRESENT: indwelling catheter Extremities exam: PRESENT: tenderness - LLE. ABSENT: calf tenderness, clubbing, full ROM, pedal edema Neurological exam: PRESENT: alert, awake, oriented to person, oriented to place, oriented to time, oriented to situation, CN II-XII grossly intact. ABSENT: motor sensory deficit Psychiatric exam: PRESENT: appropriate affect, normal mood. ABSENT: homicidal ideation, suicidal ideation Skin exam: PRESENT: dry, intact, warm. ABSENT: cyanosis, rash Results Laboratory Results: 09/09/19 05:42 09/09/19 05:42 Impressions: Knee X-Ray 09/08/19 13:04 IMPRESSION: Fracture distal femur adjacent to knee prosthesis. Chest X-Ray 09/08/19 14:55 IMPRESSION: NO ACUTE RADIOGRAPHIC FINDING IN THE CHEST. Assessment and Plan - Diagnosis (1) Fracture of distal end of femur Qualifiers: Encounter type: initial encounter Fracture type: closed Fracture morphology: other fracture Laterality: left Qualified Code(s): S72.492A - Other fracture of lower end of left femur, initial encounter for closed fracture Is this a current diagnosis for this admission?: Yes Plan: Patient is admitted to the medical floor. Echocardiogram for preoperative evaluation is reassuring; mild LV diastolic dysfunction, nml LVEF, mild pulmonary HTN Orthopedics is consulted. They do not anticipate readiness for surgery until Thursday; therefore will allow regular diet. Preop DVT prophylaxis is subcu Heparin; postoperative DVT prophylaxis per orthopedics expertise. Analgesics as needed. Harry catheter due to prolonged bedbound status. Encourage pulmonary toilet. Discharge planning consulted for postoperative rehab needs. (2) Hypertension Qualifiers: Hypertension type: essential hypertension Qualified Code(s): I10 - Es sential (primary) hypertension Is this a current diagnosis for this admission?: Yes Plan: Patient denies history of hypertension and is not on home medications. However, noted to have Blood pressure 154/51. Provide adequate pain control. Start Norvasc IV hydralazine as needed for blood pressure control. (3) Obesity (BMI 30.0-34.9) Is this a current diagnosis for this admission?: Yes Plan: BMI 34.7. Prior gastric bypass surgery. Dietary discretion and lifestyle modification are encouraged. (4) Tobacco dependence Is this a current diagnosis for this admission?: Yes Plan: Smoking cessation encouraged. Nicotine replacement therapies provided. Encourage pulmonary toilet. - Time Time Spent with patient: 25-34 minutes Medications reviewed and adjusted accordingly: Yes Anticipated discharge: SNF
[2019-09-10] MEDS: AMLODIPINE BESYLATE 5 MG TABLET PO SCH (21:45)
[2019-09-11] MEDS: OXYCODONE-ACETAMINOPHEN 5-325 MG TABLET PO PRN (05:59)
[2019-09-11] MEDS: HEPARIN SOD (PORCINE) 5,000 UNIT/ML 1 ML VIAL SUBCUT SCH (06:00)
--- NOTE | 2019-09-11 06:55 | PDOC PROGRESS REPORT ---
Subjective Progress Note for:: 09/11/19 Reason For Visit: RIGHT FEMUR FRACTURE 74-year-old white female with a left distal femoral periprosthetic fracture waiting treatment. Physical Exam Vital Signs: Temp Pulse Resp BP Pulse Ox 37.1 C 68 18 130/46 H 97 09/10/19 23:58 09/10/19 23:58 09/10/19 23:58 09/10/19 23:58 09/10/19 23:58 Intake & Output 09/09/19 09/10/19 09/11/19 06:59 06:59 06:59 Intake Total 590 1240 Output Total 953 496 1501 Balance 390 -750 -385 Weight 91.8 kg 90.8 kg 90 kg Physical Exam: Overweight middle-aged white female sitting upright in bed. Patient is alert or iented and complaining of low back pain. Respiratory exam: PRESENT: unlabored Cardiovascular exam: PRESENT: RRR Pulses: PRESENT: +1 pedal pulses bilateral Vascular exam: PRESENT: normal capillary refill GI/Abdominal exam: PRESENT: soft Rectal exam: PRESENT: deferred Extremities exam: PRESENT: other - Neurovascular examination is intact Results Laboratory Results: 09/09/19 05:42 09/09/19 05:42 Impressions: Knee X-Ray 09/08/19 13:04 IMPRESSION: Fracture distal femur adjacent to knee prosthesis. Chest X-Ray 09/08/19 14:55 IMPRESSION: NO ACUTE RADIOGRAPHIC FINDING IN THE CHEST. Status: Imported from PACS Assessment & Plan - Diagnosis (1) Fracture of distal end of femur Qualifiers: Encounter type: initial encounter Fracture type: closed Fracture morphology: other fracture Laterality: left Qualified Code(s): S72.492A - Other fracture of lower end of left femur, initial encounter for closed fracture Is this a current diagnosis for this admission?: Yes Plan: Tentative plan for surgical correction tomorrow. I reviewed 3 options with the patient including an intramedullary nail, a distal femoral plate and screws, and a distal femoral replacement. Primary surgical plan is to proceed with a retrograde intramedullary nail. my concern is expressed to the patient as it there is not enough remaining bone in the distal femoral fragment to obtain adequate mechanical stability. If this turns out to be correct intraoperative decision will be made to convert to a distal femoral replacement. Patient understands the rationale for this and asked understands the risks and benefits. Tentatively proceed with this tomorrow pending or availability. - Time Time Spent with patient: 15-24 minutes Anticipated discharge: SNF Within: Other
[2019-09-11] MEDS ORDERED: VANCOMYCIN HCL 1,000 MG in DEXTROSE 5%-WATER 250 ML IV PRN (07:01)
[2019-09-11] MEDS ORDERED: TRANEXAMIC ACID INJ/PF 1,000 MG/10 ML SDV IV PRN (07:01)
[2019-09-11] MEDS: MULTIVITAMINS W-IRON TABLET, CHEWABLE PO SCH (09:35)
[2019-09-11] MEDS: NICOTINE 21 MG/24 HR PATCH.TD24 TD SCH (09:35)
[2019-09-11] MEDS: CHOLECALCIFEROL (D3) 1,000 UNIT (25 MCG) TABLET PO SCH (09:35)
[2019-09-11] MEDS: FAMOTIDINE 20 MG TABLET PO SCH ×2 (09:35→21:47)
[2019-09-11] MEDS: CALCIUM CARBONATE 600 MG TABLET PO SCH (09:35)
[2019-09-11] MEDS: DOCUSATE SODIUM 100 MG CAPSULE PO SCH (09:35)
[2019-09-11] MEDS ORDERED: CYCLOBENZAPRINE HCL 10 MG TABLET PO PRN (11:22)
--- NOTE | 2019-09-11 15:50 | PDOC PROGRESS REPORT ---
Subjective Progress Note for:: 09/11/19 Subjective:: ALFONSO MORRIS is a 74 year old female with a past medical history of g ranulomatosis disease (followed by Dr. Badillo), prior gastric bypass with continued morbid obesity, and tobacco dependence with continuous use who was admitted 09/08/2019 with left distal femur fracture. She is seen on morning rounds. She is found resting in bed, comfortably, on room air. She reports that her pain is adequately controlled at present. Reviewed importance of incentive spirometry.status. Has fever, chills, chest pain, palpitations, dyspnea, cough, abdominal pain, nausea and vomiting. She has no questions or concerns at this time. No concerns per nursing. Reason For Visit: RIGHT FEMUR FRACTURE Physical Exam Vital Signs: Temp Pulse Resp BP Pulse Ox 98.6 F 62 16 100/45 L 97 09/11/19 12:00 09/11/19 12:00 09/11/19 12:00 09/11/19 12:00 09/11/19 12:00 Intake & Output 09/10/19 09/11/19 09/12/19 06:59 06:59 06:59 Intake Total 1240 600 Output Total 750 2325 Balance -750 -1085 600 Weight 90.8 kg 90 kg General appearance: PRESENT: no acute distress, cooperative, obese, well- developed, well-nourished Head exam: PRESENT: atraumatic, normocephalic Eye exam: PRESENT: conjunctiva pink, EOMI, PERRLA. ABSENT: scleral icterus Mouth exam: PRESENT: moist, tongue midline Respiratory exam: PRESENT: clear to auscultation cierra, symmetrical, unlabored. ABSENT: rales, rhonchi, wheezes Cardiovascular exam: PRESENT: RRR. ABSENT: diastolic murmur, rubs, systolic murmur Pulses: PRESENT: normal dorsalis pedis pul Vascular exam: PRESENT: normal capillary refill Gentrourinary exam: PRESENT: indwelling catheter Extremities exam: PRESENT: full ROM. ABSENT: calf tenderness, clubbing, pedal edema Neurological exam: PRESENT: alert, awake, oriented to person, oriented to place, oriented to time, oriented to situation, CN II-XII grossly intact. ABSENT: motor sensory deficit Psychiatric exam: PRESENT: appropriate affect, normal mood. ABSENT: homicidal ideation, suicidal ideation Skin exam: PRESENT: dry, intact, warm. ABSENT: cyanosis, rash Results Laboratory Results: 09/09/19 05:42 09/09/19 05:42 Impressions: Knee X-Ray 09/08/19 13:04 IMPRESSION: Fracture distal femur adjacent to knee prosthesis. Chest X-Ray 09/08/19 14:55 IMPRESSION: NO ACUTE RADIOGRAPHIC FINDING IN THE CHEST. Assessment and Plan - Diagnosis (1) Fracture of distal end of femur Qualifiers: Encounter type: initial encounter Fracture type: closed Fracture morphology: other fracture Laterality: left Qualified Code(s): S72.492A - Other fracture of lower end of left femur, initial encounter for closed fracture Is this a current diagnosis for this admission?: Yes Plan: Patient is admitted to the medical floor. Echocardiogram for preoperative evaluation is reassuring; mild LV diastolic dysfunction, nml LVEF, mild pulmonary HTN Orthopedics is consulted. Plan for surgery tomorrow. NPO after midnight Preop DVT prophylaxis is subcu Heparin; postoperative DVT prophylaxis per orthopedics expertise. Analgesics as needed. Harry catheter due to prolonged bedbound status. Encourage pulmonary toilet. Discharge planning consulted for postoperative rehab needs. (2) Hypertension Qualifiers: Hypertension type: essential hypertension Qualified Code(s): I10 - Essential (primary) hypertension Is this a current diagnosis for this admission?: Yes Plan: Blood pressures are improved. Provide adequate pain control. Start Norvasc IV hydralazine as needed for blood pressure control. (3) Obesity (BMI 30.0-34.9) Is this a current diagnosis for this admission?: Yes Plan: BMI 34.7. Prior gastric bypass surgery. Dietary discretion and lifestyle modification are encouraged. (4) Tobacco dependence Is this a current diagnosis for this admission?: Yes Plan: Smoking cessation encouraged. Nicotine replacement therapies provided. Encourage pulmonary toilet. - Time Time Spent with patient: 15-24 minutes Medications reviewed and adjusted accordingly: Yes Anticipated discharge: SNF
[2019-09-11] MEDS: NORMAL SALINE 1000 ML 1,000 ML IV PRN (17:52)
[2019-09-11] MEDS: AMLODIPINE BESYLATE 5 MG TABLET PO SCH (21:47)
[2019-09-12] MEDS: RINGERS SOLUTION,LACTATED 1,000 ML IV PRN ×2 (00:55→07:45)
[2019-09-12 06:58] LABS: HEMATOCRIT 31.1 % (36.0-47.0); HEMOGLOBIN 10.4 g/dL (12.0-15.5); MEAN CORPUSCULAR HEMOGLOBIN 26.6 pg (27.0-33.4); MEAN CORPUSCULAR HGB CONC 33.4 g/dL (32.0-36.0); MEAN CORPUSCULAR VOLUME 80 fl (80-97); PLATELET COUNT 231 10^3/uL (150-450); RED CELL DISTRIBUTION WIDTH 16.7 % (11.5-14.0); WHITE BLOOD COUNT 10.7 10^3/uL (4.0-10.5)
[2019-09-12 07:21] LABS: ANION GAP 5 (5-19); BLOOD UREA NITROGEN 11 mg/dL (7-20); CALCIUM 8.8 mg/dL (8.4-10.2); CARBON DIOXIDE 23 mmol/L (22-30); CHLORIDE 109 mmol/L (98-107); GLUCOSE 105 mg/dL (75-110); POTASSIUM 4.1 mmol/L (3.6-5.0)
[2019-09-12] MEDS ORDERED: DEXTROSE 50%-WATER 25 GM/50 ML DISP.SYRIN IV PRN ×2 (07:30)
[2019-09-12] MEDS ORDERED: GLUCAGON,HUMAN RECOMB 1 MG INJ SUBCUT PRN (07:30)
[2019-09-12] MEDS ORDERED: DEXTROSE 40% GEL 15 GM TUBE PO PRN ×2 (07:30)
[2019-09-12] MEDS ORDERED: SUCCINYLCHOLINE CHLORIDE INJ 200 MG/10 ML VIAL ONE (09:10)
[2019-09-12] MEDS: CALCIUM CARBONATE 600 MG TABLET PO SCH (09:42)
[2019-09-12] MEDS: NICOTINE 21 MG/24 HR PATCH.TD24 TD SCH (09:43)
[2019-09-12] MEDS: CHOLECALCIFEROL (D3) 1,000 UNIT (25 MCG) TABLET PO SCH (09:43)
[2019-09-12] MEDS: MULTIVITAMINS W-IRON TABLET, CHEWABLE PO SCH (09:43)
[2019-09-12] MEDS: DOCUSATE SODIUM 100 MG CAPSULE PO SCH (09:43)
[2019-09-12] MEDS: FAMOTIDINE 20 MG TABLET PO SCH ×2 (09:44→22:54)
[2019-09-12] MEDS ORDERED: ONDANSETRON HCL INJ/PF 4 MG/2 ML SDV ONE (12:55)
[2019-09-12] MEDS ORDERED: DEXAMETHASONE SOD PHOSPHATE INJ 4 MG/1 ML VIAL ONE (12:55)
[2019-09-12] MEDS ORDERED: FENTANYL CITRATE INJ/PF 100 MCG/2 ML AMPUL ONE (12:55)
[2019-09-12] MEDS ORDERED: MIDAZOLAM 2 MG/2 ML INJ ONE (12:55)
[2019-09-12] MEDS ORDERED: PROPOFOL INJ 200 MG/20 ML VIAL IV ONE (12:56)
--- NOTE | 2019-09-12 13:10 | PDOC PROGRESS REPORT ---
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 She is seen on morning rounds. She is found resting in bed, comfortably, on room air. She reports that her pain is adequately controlled at present. Looking forward to operative repair today. Denies fever, chills, chest pain, palpitations, dyspnea, cough, abdominal pain, nausea and vomiting. She has no questions or concerns at this time. No concerns per nursing. Reason For Visit: RIGHT FEMUR FRACTURE Physical Exam Vital Signs: Temp Pulse Resp BP Pulse Ox 97.8 F 71 17 148/51 H 99 09/12/19 12:45 09/12/19 12:45 09/12/19 12:45 09/12/19 12:45 09/12/19 12:45 Intake & Output 09/11/19 09/12/19 09/13/19 06:59 06:59 06:59 Intake Total 1240 2367 1000 Output Total 2325 590 2150 Balance -1085 1777 -1150 Weight 90 kg 90.5 kg General appearance: PRESENT: no acute distress, cooperative, obese, well- developed, well-nourished Head exam: PRESENT: atraumatic, normocephalic Eye exam: PRESENT: conjunctiva pink, EOMI, PERRLA. ABSENT: scleral icterus Mouth exam: PRESENT: moist, tongue midline Respiratory exam: PRESENT: clear to auscultation cierra, symmetrical, unlabored. ABSENT: rales, rhonchi, wheezes Cardiovascular exam: PRESENT: RRR, +S1, +S2. ABSENT: diastolic murmur, rubs, systolic murmur Pulses: PRESENT: normal dorsalis pedis pul Vascular exam: PRESENT: normal capillary refill Gentrourinary exam: PRESENT: indwelling catheter Extremities exam: PRESENT: tenderness - RLE. ABSENT: calf tenderness, clubbing, full ROM, pedal edema Neurological exam: PRESENT: alert, awake, oriented to person, oriented to place, oriented to time, oriented to situation, CN II-XII grossly intact. ABSENT: motor sensory deficit Psychiatric exam: PRESENT: appropriate affect, normal mood. ABSENT: homicidal ideation, suicidal ideation Skin exam: PRESENT: dry, intact, warm. ABSENT: cyanosis, rash Results Laboratory Results: 09/12/19 06:06 09/12/19 06:06 09/12/19 09/12/19 06:06 06:06 WBC 10.7 H RBC 3.90 Hgb 10.4 L Hct 31.1 L MCV 80 MCH 26.6 L MCHC 33.4 RDW 16.7 H Plt Count 231 Sodium 137.4 Potassium 4.1 Chloride 109 H Carbon Dioxide 23 Anion Gap 5 BUN 11 Creatinine 0.60 Est GFR ( Amer) > 60 Glucose 105 Calcium 8.8 Impressions: Knee X-Ray 09/08/19 13:04 IMPRESSION: Fracture distal femur adjacent to knee prosthesis. Chest X-Ray 09/08/19 14:55 IMPRESSION: NO ACUTE RADIOGRAPHIC FINDING IN THE CHEST. Assessment and Plan - Diagnosis (1) Fracture of distal end of femur Qualifiers: Encounter type: initial encounter Fracture type: closed Fracture morphology: other fracture Laterality: left Qualified Code(s): S72.492A - Other fracture of lower end of left femur, initial encounter for closed fracture Is this a current diagnosis for this admission?: Yes Plan: Patient is admitted to the medical floor. Echocardiogram for preoperative evaluation is reassuring; mild LV diastolic dysfunction, nml LVEF, mild pulmonary HTN Orthopedics is consulted. Plan for surgery today Preop DVT prophylaxis is subcu Heparin; postoperative DVT prophylaxis per orthopedics expertise. Analgesics as needed. Harry catheter due to prolonged bedbound status. Encourage pulmonary toilet. Discharge planning consulted for postoperative rehab needs. (2) Hypertension Qualifiers: Hypertension type: essential hypertension Qualified Code(s): I10 - Essential (primary) hypertension Is this a current diagnosis for this admission?: Yes Plan: Blood pressures are improved, though remain elevated 148/51. Provide adequate pain control. Continue Norvasc IV hydralazine as needed for blood pressure control. (3) Obesity (BMI 30.0-34.9) Is this a current diagnosis for this admission?: Yes Plan: BMI 34.7. Prior gastric bypass surgery. Dietary discretion and lifestyle modification are encouraged. (4) Tobacco dependence Is this a current diagnosis for this admission?: Yes Plan: Smoking cessation encouraged. Nicotine replacement therapies provided. Encourage pulmonary toilet. - Time Time Spent with patient: 15-24 minutes Medications reviewed and adjusted accordingly: Yes Anticipated discharge: SNF
[2019-09-12] MEDS ORDERED: BUPIVACAINE HCL 0.5 % INJ/PF 30 ML SDV ONE (13:25)
[2019-09-12] MEDS ORDERED: TRANEXAMIC ACID INJ/PF 1,000 MG/10 ML SDV ONE ×2 (14:31→15:55)
[2019-09-12] MEDS ORDERED: VANCOMYCIN HCL INJ 1000 MG VIAL ONE (14:31)
[2019-09-12] MEDS ORDERED: ONDANSETRON HCL INJ/PF 4 MG/2 ML SDV IV PRN (14:45)
[2019-09-12] MEDS ORDERED: MORPHINE SULFATE 10 MG/ML INJ IV PRN (14:45)
[2019-09-12] MEDS ORDERED: PROMETHAZINE HCL INJ 25 MG/1 ML VIAL IV PRN ×2 (14:45)
[2019-09-12] MEDS ORDERED: OXYCODONE-ACETAMINOPHEN 5-325 MG TABLET PO PRN (14:45)
[2019-09-12] MEDS ORDERED: MEPERIDINE HCL/PF INJ 25 MG/1 ML DISP.SYRIN IV PRN (14:45)
[2019-09-12] MEDS ORDERED: DIPHENHYDRAMINE HCL 50 MG/ML VIAL IV PRN (14:45)
[2019-09-12] MEDS ORDERED: FENTANYL CITRATE INJ/PF 100 MCG/2 ML AMPUL IV PRN ×3 (14:45)
--- NOTE | 2019-09-12 15:17 | Operative Report ---
Operative Report DATE OF SURGERY: 09/12/19 PREOPERATIVE DIAGNOSIS: Left periprosthetic distal femur fracture OPERATION: Open reduction internal fixation of left distal femoral periprosthetic fracture SURGEON: DEEPALI BERNAL ANESTHESIA: GA ESTIMATED BLOOD LOSS: 75 PROCEDURE: With the patient supine on the operating table the left lower extremities prepped and draped in a sterile fashion. A decision is not to use a sterile tourniquet at the onset. Using a previous midline medial parapatellar approach the knee is exposed. There is a plastic plug at the top of the posterior stabilized box on the Arnel Sigma implant. This is removed with a drill. Subsequently a ball-tipped guide rods placed down the femur with the length measured to be less than 340 mm. It sequentially reamed using a flexible reamer until 11.5 mmHg millimeter reamer is passed. Next a [place] 11 x 320 mm T2 CS and system nail was advanced over the ball-tipped guide roseanne. It is advanced to a depth so that the most distal hole which is a 6 mm hole, is lined up the right proximal to the posterior stabilized box. A bolt is placed through this hole and 2 oblique screws were placed above that. Lastly a single AP screw was placed in the proximal femur. The wounds were irrigated with pulse lavage and closed using rapid Vicryl followed by juanito. A sterile compressive dressing was applied and patient is returned to PACU in satisfactory condition.
--- NOTE | 2019-09-12 15:47 | RADIOLOGY REPORT (SQ) ---
EXAM DESCRIPTION: FEMUR LEFT; NO CHG FLUORO IMAGES COMPLETED DATE/TIME: 09/12/2019 3:27 pm REASON FOR STUDY: ORIF LEFT DISTAL FEMUR ASST WITH FLUORO IN OR COMPARISON: None. FLUOROSCOPY TIME: 2.2 minutes. 4 images submitted to PACS. TECHNIQUE: Fluoroscopic images were obtained intraoperatively during placement of an intramedullary nail to transfix a periprosthetic fracture of the distal femur. NUMBER OF IMAGES: 4 LIMITATIONS: None. FINDINGS: Refer to the Technique. IMPRESSION: IMAGE(S) OBTAINED DURING PROCEDURE. COMMENT: Quality ID 145: Final reports for procedures using fluoroscopy that document radiation exp osure indices, or exposure time and number of fluorographic images (if radiation exposure indices are not available) Please consult full operative report of the attending physician for description of the procedure. TECHNICAL DOCUMENTATION: JOB ID: [id number] 2010 [employer]- All Rights Reserved Reading location - IP/workstation name: [email or web address]
--- NOTE | 2019-09-12 15:47 | RADIOLOGY REPORT (SQ) ---
EXAM DESCRIPTION: FEMUR LEFT; NO CHG FLUORO IMAGES COMPLETED DATE/TIME: 09/12/2019 3:27 pm REASON FOR STUDY: ORIF LEFT DISTAL FEMUR ASST WITH FLUORO IN OR COMPARISON: None. FLUOROSCOPY TIME: 2.2 minutes. 4 images submitted to PACS. TECHNIQUE: Fluoroscopic images were obtained intraoperatively during placement of an intramedullary nail to transfix a periprosthetic fracture of the distal femur. NUMBER OF IMAGES: 4 LIMITATIONS: None. FINDINGS: Refer to the Technique. IMPRESSION: IMAGE(S) OBTAINED DURING PROCEDURE. COMMENT: Quality ID 145: Final reports for procedures using fluoroscopy that document radiation exp osure indices, or exposure time and number of fluorographic images (if radiation exposure indices are not available) Please consult full operative report of the attending physician for description of the procedure. TECHNICAL DOCUMENTATION: JOB ID: [id number] 2010 [employer]- All Rights Reserved Reading location - IP/workstation name: [email or web address]
[2019-09-12] MEDS ORDERED: RINGERS SOLUTION,LACTATED 1,000 ML IV PRN (15:48)
[2019-09-12] MEDS ORDERED: DIAZEPAM INJ 10 MG/2 ML DISP.SYRIN ONE (16:02)
[2019-09-12] MEDS: OXYCODONE-ACETAMINOPHEN 5-325 MG TABLET PO PRN ×2 (16:48→22:54)
[2019-09-12] MEDS: CYCLOBENZAPRINE HCL 10 MG TABLET PO PRN (19:25)
[2019-09-12] MEDS: AMLODIPINE BESYLATE 5 MG TABLET PO SCH (22:54)
[2019-09-13] MEDS ORDERED: VANCOMYCIN HCL 1,000 MG in DEXTROSE 5%-WATER 250 ML IV ONE (03:00)
[2019-09-13 05:53] LABS: ABSOLUTE RETICS # 0.104 10^6/uL (0.028-0.122); HEMATOCRIT 26.9 % (36.0-47.0); HEMOGLOBIN 8.7 g/dL (12.0-15.5); MEAN CORPUSCULAR HEMOGLOBIN 26.2 pg (27.0-33.4); MEAN CORPUSCULAR HGB CONC 32.4 g/dL (32.0-36.0); MEAN CORPUSCULAR VOLUME 81 fl (80-97); PLATELET COUNT 201 10^3/uL (150-450); RED BLOOD COUNT 3.33 10^6/uL (3.72-5.28); RED CELL DISTRIBUTION WIDTH 16.5 % (11.5-14.0); RETICULOCYTE COUNT (AUTO) 3.13 % (0.66-2.85); WHITE BLOOD COUNT 11.4 10^3/uL (4.0-10.5)
[2019-09-13 06:11] LABS: BLOOD UREA NITROGEN 12 mg/dL (7-20); CALCIUM 8.7 mg/dL (8.4-10.2); GLUCOSE 142 mg/dL (75-110); IRON(TIBC) 27.8 ug/dL (37-170); POTASSIUM 4.2 mmol/L (3.6-5.0)
[2019-09-13 06:16] LABS: CARBON DIOXIDE 26 mmol/L (22-30); CHLORIDE 107 mmol/L (98-107)
[2019-09-13 06:30] LABS: ANION GAP 4 (5-19)
--- NOTE | 2019-09-13 07:01 | PDOC PROGRESS REPORT ---
Subjective Progress Note for:: 09/13/19 Reason For Visit: RIGHT FEMUR FRACTURE 74-year-old white female now postop day 1 status post ORIF of a left distal periprosthetic femur fracture. Uneventful postoperative course. Patient is comfortable. Physical Exam Vital Signs: Temp Pulse Resp BP Pulse Ox 36.6 C 64 16 112/43 L 97 09/13/19 04:09 09/13/19 04:09 09/13/19 04:09 09/13/19 04:09 09/13/19 04:09 Intake & Output 09/11/19 09/12/19 09/13/19 06:59 06:59 06:59 Intake Total 1240 2367 2610 Output Total 2325 590 3250 Balance -1085 1777 -640 Weight 90 kg 90.5 kg 93.9 kg Physical Exam: Middle-aged white female lying in hospital bed. Patient is alert, oriented, and appropriate. General appearance: PRESENT: obese Head exam: PRESENT: normocephalic Respiratory exam: PRESENT: unlabored Cardiovascular exam: PRESENT: RRR Extremities exam: PRESENT: other - Lower extremity dressing is clean dry and intact. Distal neurovascular examination is intact. Results Laboratory Results: 09/13/19 05:35 09/13/19 05:35 09/12/19 09/12/19 09/12/19 06:06 06:06 13:49 WBC 10.7 H RBC 3.90 Hgb 10.4 L Hct 31.1 L MCV 80 MCH 26.6 L MCHC 33.4 RDW 16.7 H Plt Count 231 Retic Count (auto) Sodium 137.4 Potassium 4.1 Chloride 109 H Carbon Dioxide 23 Anion Gap 5 BUN 11 Creatinine 0.60 Est GFR ( Amer) > 60 Glucose 105 Calcium 8.8 Iron TIBC % Saturation Blood Type A POSITIVE Antibody Screen TNP 09/13/19 09/13/19 05:35 05:35 WBC 11.4 H RBC 3.33 L Hgb 8.7 L Hct 26.9 L MCV 81 MCH 26.2 L MCHC 32.4 RDW 16.5 H Plt Count 201 Retic Count (auto) 3.13 H Sodium 136.5 L Potassium 4.2 Chloride 107 Carbon Dioxide 26 Anion Gap 4 L BUN 12 Creatinine 0.56 Est GFR ( Amer) > 60 Glucose 142 H Calcium 8.7 Iron 27.8 L TIBC 306 % Saturation 9 Blood Type Antibody Screen Impressions: Knee X-Ray 09/08/19 13:04 IMPRESSION: Fracture distal femur adjacent to knee prosthesis. Chest X-Ray 09/08/19 14:55 IMPRESSION: NO ACUTE RADIOGRAPHIC FINDING IN THE CHEST. Femur X-Ray 09/12/19 00:00 IMPRESSION: IMAGE(S) OBTAINED DURING PROCEDURE. Fluoroscopy 09/12/19 00:00 IMPRESSION: IMAGE(S) OBTAINED DURING PROCEDURE. Status: Imported from PACS Assessment & Plan - Diagnosis (1) Fracture of distal end of femur Qualifiers: Encounter type: initial encounter Fracture type: closed Fracture morphology: other fracture Laterality: left Qualified Code(s): S72.492A - Other fracture of lower end of left femur, initial encounter for closed fracture Is this a current diagnosis for this admission?: Yes Plan: Mobilize with physical therapy and a touchdown weightbearing restriction on the left lower extremity. Anticipate discharge home with home health services and DME function permits - Time Time Spent with patient: 15-24 minutes Anticipated discharge: Home with Homehealth Within: within 48 hours
[2019-09-13] MEDS: DOCUSATE SODIUM 100 MG CAPSULE PO SCH (09:16)
[2019-09-13] MEDS: FAMOTIDINE 20 MG TABLET PO SCH ×2 (09:16→21:20)
[2019-09-13] MEDS: OXYCODONE-ACETAMINOPHEN 5-325 MG TABLET PO PRN ×2 (09:16→18:24)
[2019-09-13] MEDS: MULTIVITAMINS W-IRON TABLET, CHEWABLE PO SCH (09:16)
[2019-09-13] MEDS: CHOLECALCIFEROL (D3) 1,000 UNIT (25 MCG) TABLET PO SCH (09:18)
[2019-09-13] MEDS: NICOTINE 21 MG/24 HR PATCH.TD24 TD SCH (09:18)
[2019-09-13] MEDS: CALCIUM CARBONATE 600 MG TABLET PO SCH (09:18)
[2019-09-13] MEDS ORDERED: IRON SUCROSE COMPLEX INJ/PF 100 MG/5 ML SDV IV ONE (10:00)
--- NOTE | 2019-09-13 12:36 | PDOC PROGRESS REPORT ---
Subjective Progress Note for:: 09/13/19 Subjective:: ALFONSO MORRIS is a 74 year old female with a past medical history of g ranulomatosis disease (followed by Dr. Badillo), prior gastric bypass with continued morbid obesity, and tobacco dependence with continuous use who was admitted 09/08/2019 with left distal femur fracture. Now post op AF left distal femoral prosthetic fracture She is seen on morning rounds. She is found resting in bed, comfortably, on room air. She reports that her pain is much improved today following her surgical repair. She is looking forward to starting physical therapy. Confirms she intends to discharge to home once cleared by Ortho. Denies fever, chills, chest pain, palpitations, dyspnea, cough, abdominal pain, nausea and vomiting. She has no questions or concerns at this time. No concerns per nursing. Reason For Visit: RIGHT FEMUR FRACTURE Physical Exam Vital Signs: Temp Pulse Resp BP Pulse Ox 98.7 F 67 16 112/35 L 97 09/13/19 10:59 09/13/19 10:59 09/13/19 10:59 09/13/19 10:59 09/13/19 10:59 Intake & Output 09/12/19 09/13/19 09/14/19 06:59 06:59 06:59 Intake Total 2367 2610 2260 Output Total 590 3250 Balance 1777 -640 2260 Weight 90.5 kg 93.9 kg General appearance: PRESENT: no acute distress, cooperative, obese, well- developed, well-nourished Head exam: PRESENT: atraumatic, normocephalic Eye exam: PRESENT: conjunctiva pink, EOMI, PERRLA. ABSENT: scleral icterus Mouth exam: PRESENT: moist, tongue midline Respiratory exam: PRESENT: clear to auscultation cierra, symmetrical, unlabored, other - Room air. ABSENT: rales, rhonchi, wheezes Cardiovascular exam: PRESENT: RRR. ABSENT: diastolic murmur, rubs, systolic murmur Pulses: PRESENT: normal dorsalis pedis pul Vascular exam: PRESENT: normal capillary refill Gentrourinary exam: PRESENT: indwelling catheter Extremities exam: ABSENT: calf tenderness, clubbing, full ROM - LLE with postop dressing and knee immobilizer in place, pedal edema Neurological exam: PRESENT: alert, awake, oriented to person, oriented to place, oriented to time, oriented to situation, CN II-XII grossly intact. ABSENT: motor sensory deficit Psychiatric exam: PRESENT: appropriate affect, normal mood. ABSENT: homicidal ideation, suicidal ideation Skin exam: PRESENT: dry, warm. ABSENT: cyanosis, intact - Surgical site not visualized; postop dressing and knee immobilizer in place., rash Results Laboratory Results: 09/13/19 05:35 09/13/19 05:35 09/12/19 09/13/19 09/13/19 13:49 05:35 05:35 WBC 11.4 H RBC 3.33 L Hgb 8.7 L Hct 26.9 L MCV 81 MCH 26.2 L MCHC 32.4 RDW 16.5 H Plt Count 201 Retic Count (auto) 3.13 H Sodium 136.5 L Potassium 4.2 Chloride 107 Carbon Dioxide 26 Anion Gap 4 L BUN 12 Creatinine 0.56 Est GFR ( Amer) > 60 Glucose 142 H Calcium 8.7 Iron 27.8 L TIBC 306 % Saturation 9 Transferrin Ferritin 23.00 Vitamin B12 > 1000.0 H Folate 13.20 Blood Type A POSITIVE Antibody Screen TNP 09/13/19 05:35 WBC RBC Hgb Hct MCV MCH MCHC RDW Plt Count Retic Count (auto) Sodium Potassium Chloride Carbon Dioxide Anion Gap BUN Creatinine Est GFR ( Amer) Glucose Calcium Iron TIBC % Saturation Transferrin 202.52 L Ferritin Vitamin B12 Folate Blood Type Antibody Screen Impressions: Knee X-Ray 09/08/19 13:04 IMPRESSION: Fracture distal femur adjacent to knee prosthesis. Chest X-Ray 09/08/19 14:55 IMPRESSION: NO ACUTE RADIOGRAPHIC FINDING IN THE CHEST. Femur X-Ray 09/12/19 00:00 IMPRESSION: IMAGE(S) OBTAINED DURING PROCEDURE. Fluoroscopy 09/12/19 00:00 IMPRESSION: IMAGE(S) OBTAINED DURING PROCEDURE. Assessment and Plan - Diagnosis (1) Fracture of distal end of femur Qualifiers: Encounter type: initial encounter Fracture type: closed Fracture morphology: other fracture Laterality: left Qualified Code(s): S72.492A - Other fracture of lower end of left femur, initial encounter for closed fracture Is this a current diagnosis for this admission?: Yes Plan: Patient is admitted to the medical floor. Echocardiogram for preoperative evaluation is reassuring; mild LV diastolic dysfunction, nml LVEF, mild pulmonary HTN Postop day #1 ORIF left distal femur prosthetic repair by Dr. Jovel Orthopedics is consulted. Preop DVT prophylaxis is subcu Heparin; postoperative DVT prophylaxis per orthopedics expertise. Analgesics as needed. Harry catheter to be removed today. Encourage pulmonary toilet. Physical therapy consulted. Discharge planning consulted for postoperative rehab needs. (2) Hypertension Qualifiers: Hypertension type: essential hypertension Qualified Code(s): I10 - Essential (primary) hypertension Is this a current diagnosis for this admission?: Yes Plan: Blood pressures are improved Provide adequate pain control. Continue Norvasc IV hydralazine as needed for blood pressure control. (3) Obesity (BMI 30.0-34.9) Is this a current diagnosis for this admission?: Yes Plan: BMI 34.7. Prior gastric bypass surgery. Dietary discretion and lifestyle modification are encouraged. (4) Tobacco dependence Is this a current diagnosis for this admission?: Yes Plan: Smoking cessation encouraged. Nicotine replacement therapies provided. Encourage pulmonary toilet. (5) Anemia Qualifiers: Anemia type: iron deficiency Is this a current diagnosis for this admission?: Yes Plan: Hgb 10.4-> 8.4 following surgery Anemia panel confirms iron deficiency. IV Venofer x1. Trend CBC and transfuse as necessary. - Time Time Spent with patient: 25-34 minutes Medications reviewed and adjusted accordingly: Yes Anticipated discharge: Home with Homehealth
[2019-09-13 15:43] LABS: HEMOGLOBIN 8.8 g/dL (12.0-15.5); MEAN CORPUSCULAR HEMOGLOBIN 26.6 pg (27.0-33.4); MEAN CORPUSCULAR HGB CONC 32.7 g/dL (32.0-36.0); MEAN CORPUSCULAR VOLUME 82 fl (80-97); PLATELET COUNT 225 10^3/uL (150-450); RED BLOOD COUNT 3.32 10^6/uL (3.72-5.28); RED CELL DISTRIBUTION WIDTH 16.7 % (11.5-14.0); WHITE BLOOD COUNT 10.7 10^3/uL (4.0-10.5)
[2019-09-13] MEDS ORDERED: PHENOL/SODIUM PHENOLATE 100 SPRAY/177 ML BOTTLE PO PRN (15:57)
[2019-09-13] MEDS: AMLODIPINE BESYLATE 5 MG TABLET PO SCH (21:20)
[2019-09-13] MEDS: CYCLOBENZAPRINE HCL 10 MG TABLET PO PRN (21:20)
[2019-09-14 05:38] LABS: HEMATOCRIT 25.3 % (36.0-47.0); HEMOGLOBIN 8.3 g/dL (12.0-15.5); MEAN CORPUSCULAR HEMOGLOBIN 26.6 pg (27.0-33.4); MEAN CORPUSCULAR HGB CONC 32.8 g/dL (32.0-36.0); MEAN CORPUSCULAR VOLUME 81 fl (80-97); PLATELET COUNT 205 10^3/uL (150-450); RED BLOOD COUNT 3.12 10^6/uL (3.72-5.28); RED CELL DISTRIBUTION WIDTH 16.9 % (11.5-14.0); WHITE BLOOD COUNT 9.5 10^3/uL (4.0-10.5)
--- NOTE | 2019-09-14 07:01 | PDOC PROGRESS REPORT ---
Subjective Progress Note for:: 09/14/19 Reason For Visit: RIGHT FEMUR FRACTURE 74-year-old white female status post ORIF of a left distal femoral periprosthetic fracture. Uneventful postoperative course. Hematocrit has dipped to 25% as a result of acute blood loss anemia superimposed on a chronic iron deficiency and anemia. Physical Exam Vital Signs: Temp Pulse Resp BP Pulse Ox 37.0 C 69 18 121/41 L 95 09/13/19 22:57 09/14/19 04:47 09/14/19 04:47 09/14/19 04:47 09/14/19 04:47 Intake & Output 09/12/19 09/13/19 09/14/19 06:59 06:59 06:59 Intake Total 2367 2860 2692 Output Total 590 3250 0 Balance 1777 -390 2692 Weight 90.5 kg 93.9 kg 93.4 kg General appearance: PRESENT: no acute distress, obese Head exam: PRESENT: normocephalic Respiratory exam: PRESENT: unlabored Cardiovascular exam: PRESENT: RRR Vascular exam: PRESENT: normal capillary refill GI/Abdominal exam: PRESENT: soft Rectal exam: PRESENT: deferred Extremities exam: PRESENT: other - compressive dressing removed from the left lower extremity. Underlying OpSite dressings are clean dry and intact. Minimal pedal edema. Distal neurovascular examination is intact. Results Laboratory Results: 09/14/19 05:18 09/13/19 05:35 09/13/19 09/13/19 09/13/19 05:35 05:35 15:09 WBC 10.7 H RBC 3.32 L Hgb 8.8 L Hct 27.0 L MCV 82 MCH 26.6 L MCHC 32.7 RDW 16.7 H Plt Count 225 Transferrin 202.52 L Ferritin 23.00 Vitamin B12 > 1000.0 H Folate 13.20 09/14/19 05:18 WBC 9.5 RBC 3.12 L Hgb 8.3 L Hct 25.3 L MCV 81 MCH 26.6 L MCHC 32.8 RDW 16.9 H Plt Count 205 Transferrin Ferritin Vitamin B12 Folate Impressions: Knee X-Ray 09/08/19 13:04 IMPRESSION: Fracture distal femur adjacent to knee prosthesis. Chest X-Ray 09/08/19 14:55 IMPRESSION: NO ACUTE RADIOGRAPHIC FINDING IN THE CHEST. Femur X-Ray 09/12/19 00:00 IMPRESSION: IMAGE(S) OBTAINED DURING PROCEDURE. Fluoroscopy 09/12/19 00:00 IMPRESSION: IMAGE(S) OBTAINED DURING PROCEDURE. Assessment & Plan - Diagnosis (1) Fracture of distal end of femur Qualifiers: Encounter type: initial encounter Fracture type: closed Fracture morphology: other fracture Laterality: left Qualified Code(s): S72.492A - Other fracture of lower end of left femur, initial encounter for closed fracture Is this a current diagnosis for this admission?: Yes Plan: Continue to mobilize on a touchdown weightbearing restriction the left lower extremity. Patient is making plans at home for relatives to help care for her and is looking forward to discharge home tomorrow. I explained to her that as a precondition for discharge she needs to be able to get from the bed to a chair to a bathroom on her own. She will work on this today. (2) Anemia Qualifiers: Anemia type: iron deficiency Is this a current diagnosis for this admission?: Yes Plan: Anemia is multifactorial. At this point the patient seems to be asymptomatic and hematocrit has decreased to 25%. I think we continue to watch this and if it does not decrease any further transfusion could be avoided. - Time Time Spent with patient: 15-24 minutes Anticipated discharge: Home with Homehealth Within: within 24 hours
[2019-09-14] MEDS: CALCIUM CARBONATE 600 MG TABLET PO SCH (09:36)
[2019-09-14] MEDS: MULTIVITAMINS W-IRON TABLET, CHEWABLE PO SCH (09:36)
[2019-09-14] MEDS: FAMOTIDINE 20 MG TABLET PO SCH ×2 (09:36→21:37)
[2019-09-14] MEDS: DOCUSATE SODIUM 100 MG CAPSULE PO SCH (09:36)
[2019-09-14] MEDS: CHOLECALCIFEROL (D3) 1,000 UNIT (25 MCG) TABLET PO SCH (09:37)
[2019-09-14] MEDS: OXYCODONE-ACETAMINOPHEN 5-325 MG TABLET PO PRN ×2 (09:37→21:37)
[2019-09-14] MEDS: POLYETHYLENE GLYCOL 3350 POWDER 17 GM/1 PACKET PO SCH (09:39)
[2019-09-14] MEDS: NICOTINE 21 MG/24 HR PATCH.TD24 TD SCH (09:42)
--- NOTE | 2019-09-14 14:40 | PDOC PROGRESS REPORT ---
Subjective Progress Note for:: 09/14/19 Subjective:: ALFONSO MORRIS is a 74 year old female with a past medical history of g ranulomatosis disease (followed by Dr. Badillo), prior gastric bypass with continued morbid obesity, and tobacco dependence with continuous use who was admitted 09/08/2019 with left distal femur fracture. Now post op AF left distal femoral prosthetic fracture 09/14/2019. No acute events overnight. Comfortable stable no apparent distress. Denies any fever, chills, nausea, vomiting, diarrhea, constipation or any urinary symptoms. Complaining of mild pain in the left lower extremity, unable to ambulate, receiving physical therapy patient would like to be discharged home once she is ready to be discharged. Reason For Visit: RIGHT FEMUR FRACTURE Physical Exam Vital Signs: Temp Pulse Resp BP Pulse Ox 99.3 F 71 17 126/36 H 94 09/14/19 11:48 09/14/19 11:48 09/14/19 11:48 09/14/19 11:48 09/14/19 11:48 Intake & Output 09/13/19 09/14/19 09/15/19 06:59 06:59 06:59 Intake Total 2860 2692 240 Output Total 3250 0 Balance -390 2692 240 Weight 93.9 kg 93.4 kg General appearance: PRESENT: no acute distress, well-developed, well-nourished Head exam: PRESENT: atraumatic, normocephalic Neck exam: ABSENT: carotid bruit, JVD, lymphadenopathy, thyromegaly Respiratory exam: PRESENT: clear to auscultation cierra. ABSENT: rales, rhonchi, wheezes Cardiovascular exam: PRESENT: RRR. ABSENT: diastolic murmur, rubs, systolic murmur GI/Abdominal exam: PRESENT: normal bowel sounds, soft. ABSENT: distended, guarding, mass, organolmegaly, rebound, tenderness Extremities exam: PRESENT: full ROM, other - Left lower extremity wound looks clean, mild swelling, limited range of motion due to pain. Neurovascularly intact.. ABSENT: calf tenderness, clubbing, pedal edema Neurological exam: PRESENT: alert, awake, oriented to person, oriented to place, oriented to time, oriented to situation, CN II-XII grossly intact. ABSENT: motor sensory deficit Skin exam: PRESENT: dry, intact, warm. ABSENT: cyanosis, rash Results Laboratory Results: 09/14/19 05:18 09/13/19 05:35 09/13/19 09/14/19 15:09 05:18 WBC 10.7 H 9.5 RBC 3.32 L 3.12 L Hgb 8.8 L 8.3 L Hct 27.0 L 25.3 L MCV 82 81 MCH 26.6 L 26.6 L MCHC 32.7 32.8 RDW 16.7 H 16.9 H Plt Count 225 205 Impressions: Knee X-Ray 09/08/19 13:04 IMPRESSION: Fracture distal femur adjacent to knee prosthesis. Chest X-Ray 09/08/19 14:55 IMPRESSION: NO ACUTE RADIOGRAPHIC FINDING IN THE CHEST. Femur X-Ray 09/12/19 00:00 IMPRESSION: IMAGE(S) OBTAINED DURING PROCEDURE. Fluoroscopy 09/12/19 00:00 IMPRESSION: IMAGE(S) OBTAINED DURING PROCEDURE. Assessment and Plan - Diagnosis (1) Fracture of distal end of femur Qualifiers: Encounter type: initial encounter Fracture type: closed Fracture morphology: other fracture Laterality: left Qualified Code(s): S72.492A - Other fracture of lower end of left femur, initial encounter for closed fracture Is this a current diagnosis for this admission?: Yes Plan: Postop day #2 ORIF left distal femur prosthetic repair by Dr. Jovel Continue wound care. Continue PT. Opioid and non-opioid analgesics as needed. Monitor for respiratory depression. Patient would like to be transition to home with home health and home PT. Possible DC home tomorrow. (2) Anemia Qualifiers: Anemia type: iron deficiency Is this a current diagnosis for this admission?: Yes Plan: Likely acute blood loss due to hip fracture followed by hip surgery. Anemia panel confirms iron deficiency. H&H stable. Discussed IV Venofer x1. Resume ferrous sulfate upon discharge. Outpatient PCP follow-up. (3) Hypertension Qualifiers: Hypertension type: essential hypertension Qualified Code(s): I10 - Essential (primary) hypertension Is this a current diagnosis for this admission?: Yes Plan: Blood pressures are improved Provide adequate pain control. Continue Norvasc IV hydralazine as needed for blood pressure control. (4) Obesity (BMI 30.0-34.9) Is this a current diagnosis for this admission?: Yes Plan: BMI 34.7. Prior gastric bypass surgery. Dietary discretion and lifestyle modification are encouraged. (5) Tobacco dependence Is this a current diagnosis for this admission?: Yes Plan: Smoking cessation encouraged. Nicotine replacement therapies provided. Encourage pulmonary toilet.
[2019-09-14] MEDS: AMLODIPINE BESYLATE 5 MG TABLET PO SCH (21:36)
[2019-09-14] MEDS: CYCLOBENZAPRINE HCL 10 MG TABLET PO PRN (21:36)
[2019-09-15 06:10] LABS: HEMATOCRIT 26.4 % (36.0-47.0); HEMOGLOBIN 8.6 g/dL (12.0-15.5); MEAN CORPUSCULAR HEMOGLOBIN 26.8 pg (27.0-33.4); MEAN CORPUSCULAR HGB CONC 32.8 g/dL (32.0-36.0); MEAN CORPUSCULAR VOLUME 82 fl (80-97); PLATELET COUNT 219 10^3/uL (150-450); RED BLOOD COUNT 3.23 10^6/uL (3.72-5.28); RED CELL DISTRIBUTION WIDTH 17.6 % (11.5-14.0)
[2019-09-15 06:30] LABS: ANION GAP 5 (5-19); BLOOD UREA NITROGEN 14 mg/dL (7-20); CALCIUM 8.7 mg/dL (8.4-10.2); CARBON DIOXIDE 27 mmol/L (22-30); CHLORIDE 105 mmol/L (98-107); GLUCOSE 104 mg/dL (75-110); POTASSIUM 3.8 mmol/L (3.6-5.0)
--- NOTE | 2019-09-15 06:55 | PDOC PROGRESS REPORT ---
Subjective Progress Note for:: 09/15/19 Reason For Visit: RIGHT FEMUR FRACTURE 74-year-old white female now postop day 3 status post open reduction for fixation of a left distal femoral periprosthetic fracture. No events overnight. Hematocrit has slightly increased to 26%. Minimal progress with physical therapy yesterday. Physical Exam Vital Signs: Temp Pulse Resp BP Pulse Ox 36.9 C 67 18 113/45 L 93 09/14/19 23:26 09/14/19 23:26 09/14/19 23:26 09/14/19 23:26 09/14/19 23:26 Intake & Output 09/13/19 09/14/19 09/15/19 06:59 06:59 06:59 Intake Total 2860 2692 956 Output Total 3250 0 Balance -390 2692 956 Weight 93.9 kg 93.4 kg 91.2 kg General appearance: PRESENT: no acute distress Musculoskeletal exam: PRESENT: other - Left lower extremity dressings remain clean dry and intact Results Laboratory Results: 09/15/19 05:51 09/15/19 05:51 09/15/19 09/15/19 05:51 05:51 WBC 9.0 RBC 3.23 L Hgb 8.6 L Hct 26.4 L MCV 82 MCH 26.8 L MCHC 32.8 RDW 17.6 H Plt Count 219 Sodium 136.5 L Potassium 3.8 Chloride 105 Carbon Dioxide 27 Anion Gap 5 BUN 14 Creatinine 0.62 Est GFR ( Amer) > 60 Glucose 104 Calcium 8.7 Impressions: Knee X-Ray 09/08/19 13:04 IMPRESSION: Fracture distal femur adjacent to knee prosthesis. Chest X-Ray 09/08/19 14:55 IMPRESSION: NO ACUTE RADIOGRAPHIC FINDING IN THE CHEST. Femur X-Ray 09/12/19 00:00 IMPRESSION: IMAGE(S) OBTAINED DURING PROCEDURE. Fluoroscopy 09/12/19 00:00 IMPRESSION: IMAGE(S) OBTAINED DURING PROCEDURE. Status: Imported from PACS Assessment & Plan - Diagnosis (1) Fracture of distal end of femur Qualifiers: Encounter type: initial encounter Fracture type: closed Fracture morphology: other fracture Laterality: left Qualified Code(s): S72.492A - Other fracture of lower end of left femur, initial encounter for closed fracture Is this a current diagnosis for this admission?: Yes Plan: Mobilize with physical therapy on touchdown weightbearing restriction on the le ft lower extremity. Patient will need to obtain a bed to chair to bathroom functional capacity before considering sending her home with home health services and DME. (2) Anemia Qualifiers: Anemia type: iron deficiency Is this a current diagnosis for this admission?: Yes Plan: Stable - Time Time Spent with patient: 15-24 minutes Anticipated discharge: Home with Homehealth Within: within 48 hours
[2019-09-15] MEDS: DOCUSATE SODIUM 100 MG CAPSULE PO SCH (10:49)
[2019-09-15] MEDS: MULTIVITAMINS W-IRON TABLET, CHEWABLE PO SCH (10:49)
[2019-09-15] MEDS: POLYETHYLENE GLYCOL 3350 POWDER 17 GM/1 PACKET PO SCH (10:49)
[2019-09-15] MEDS: OXYCODONE-ACETAMINOPHEN 5-325 MG TABLET PO PRN (10:50)
[2019-09-15] MEDS: CALCIUM CARBONATE 600 MG TABLET PO SCH (10:50)
[2019-09-15] MEDS: FAMOTIDINE 20 MG TABLET PO SCH ×2 (10:50→21:45)
[2019-09-15] MEDS: CHOLECALCIFEROL (D3) 1,000 UNIT (25 MCG) TABLET PO SCH (10:50)
[2019-09-15] MEDS: NICOTINE 21 MG/24 HR PATCH.TD24 TD SCH (10:51)
[2019-09-15] MEDS ORDERED: PROMETHAZINE HCL INJ 25 MG/1 ML VIAL IV PRN (14:00)
[2019-09-15] MEDS ORDERED: ONDANSETRON HCL INJ/PF 4 MG/2 ML SDV IV PRN (14:00)
[2019-09-15] MEDS: FERROUS SULFATE 325 MG TABLET PO SCH (15:23)
[2019-09-15] MEDS: ACETAMINOPHEN 325 MG TABLET PO PRN (19:33)
[2019-09-15] MEDS: AMLODIPINE BESYLATE 5 MG TABLET PO SCH (21:45)
[2019-09-15] MEDS: CYCLOBENZAPRINE HCL 10 MG TABLET PO PRN (21:45)
--- NOTE | 2019-09-16 11:18 | PDOC PROGRESS REPORT ---
Subjective Progress Note for:: 09/16/19 Subjective:: ALFONSO MORRIS is a 74 year old female with a past medical history of g ranulomatosis disease (followed by Dr. Badillo), prior gastric bypass with continued morbid obesity, and tobacco dependence with continuous use who was admitted 09/08/2019 with left distal femur fracture. Now post op AF left distal femoral prosthetic fracture 09/14/2019. No acute events overnight. Comfortable stable no apparent distress. Denies any fever, chills, nausea, vomiting, diarrhea, constipation or any urinary symptoms. Complaining of mild pain in the left lower extremity, unable to ambulate, receiving physical therapy patient would like to be discharged home once she is ready to be discharged. 09/16/2019. No acute events overnight. Denies any fever, chills, nausea, vomiting, diarrhea, constipation or any urinary symptoms. Receiving physical therapy. Reporting mild improvement of ambulation. Denies any left lower extremity pain. Reason For Visit: RIGHT FEMUR FRACTURE Physical Exam Vital Signs: Temp Pulse Resp BP Pulse Ox 98.5 F 73 17 133/48 H 95 09/16/19 08:00 09/16/19 08:00 09/16/19 08:00 09/16/19 08:00 09/16/19 08:00 Intake & Output 09/15/19 09/16/19 09/17/19 06:59 06:59 06:59 Intake Total 956 588 Balance 956 588 Weight 91.2 kg 92.2 kg General appearance: PRESENT: obese Head exam: PRESENT: atraumatic, normocephalic Respiratory exam: PRESENT: clear to auscultation cierra. ABSENT: rales, rhonchi, wheezes Cardiovascular exam: PRESENT: RRR. ABSENT: diastolic murmur, rubs, systolic murmur GI/Abdominal exam: PRESENT: normal bowel sounds, soft. ABSENT: distended, guarding, mass, organolmegaly, rebound, tenderness Musculoskeletal exam: PRESENT: other - Surgical wound clean. Neurovascularly intact. Neurological exam: PRESENT: alert, awake, oriented to person, oriented to place, oriented to time, oriented to situation, CN II-XII grossly intact. ABSENT: motor sensory deficit Results Laboratory Results: 09/15/19 05:51 09/15/19 05:51 Impressions: Knee X-Ray 09/08/19 13:04 IMPRESSION: Fracture distal femur adjacent to knee prosthesis. Chest X-Ray 09/08/19 14:55 IMPRESSION: NO ACUTE RADIOGRAPHIC FINDING IN THE CHEST. Femur X-Ray 09/12/19 00:00 IMPRESSION: IMAGE(S) OBTAINED DURING PROCEDURE. Fluoroscopy 09/12/19 00:00 IMPRESSION: IMAGE(S) OBTAINED DURING PROCEDURE. Assessment and Plan - Diagnosis (1) Fracture of distal end of femur Qualifiers: Encounter type: initial encounter Fracture type: closed Fracture morphology: other fracture Laterality: left Qualified Code(s): S72.492A - Other fracture of lower end of left femur, initial encounter for closed fracture Is this a current diagnosis for this admission?: Yes Plan: Postop day #3 ORIF left distal femur prosthetic repair by Dr. Jovel Continue wound care. Continue PT. Opioid and non-opioid analgesics as needed. Monitor for respiratory depression. Patient would like to be transition to home with home health and home PT. Possible DC home tomorrow. (2) Anemia Qualifiers: Anemia type: iron deficiency Is this a current diagnosis for this admission?: Yes Plan: Likely acute blood loss due to hip fracture followed by hip surgery. Anemia panel confirms iron deficiency. H&H stable. Received IV Venofer x1. Resume ferrous sulfate upon discharge. Outpatient PCP follow-up. (3) Hypertension Qualifiers: Hypertension type: essential hypertension Qualified Code(s): I10 - Essential (primary) hypertension Is this a current diagnosis for this admission?: Yes Plan: Blood pressures are improved Provide adequate pain control. Continue Norvasc IV hydralazine as needed for blood pressure control. (4) Obesity (BMI 30.0-34.9) Is this a current diagnosis for this admission?: Yes Plan: BMI 34.7. Prior gastric bypass surgery. Dietary discretion and lifestyle modification are encouraged. (5) Tobacco dependence Is this a current diagnosis for this admission?: Yes Plan: Smoking cessation encouraged. Nicotine replacement therapies provided. Encourage pulmonary toilet.
--- NOTE | 2019-09-16 11:20 | PDOC PROGRESS REPORT ---
Subjective Progress Note for:: 09/15/19 Subjective:: ALFONSO MORRIS is a 74 year old female with a past medical history of g ranulomatosis disease (followed by Dr. Badillo), prior gastric bypass with continued morbid obesity, and tobacco dependence with continuous use who was admitted 09/08/2019 with left distal femur fracture. Now post op AF left distal femoral prosthetic fracture 09/14/2019. No acute events overnight. Comfortable stable no apparent distress. Denies any fever, chills, nausea, vomiting, diarrhea, constipation or any urinary symptoms. Complaining of mild pain in the left lower extremity, unable to ambulate, receiving physical therapy patient would like to be discharged home once she is ready to be discharged. 09/15/2019. No acute events overnight. Comfortably sitting with no apparent distress. Complaining of mild pain in her left lower extremity otherwise denies any fever, chills, nausea, vomiting, diarrhea, constipation or any urinary symptoms. 09/16/2019. No acute events overnight. Denies any fever, chills, nausea, vomiting, diarrhea, constipation or any urinary symptoms. Receiving physical therapy. Reporting mild improvement of ambulation. Denies any left lower extremity pain. Reason For Visit: RIGHT FEMUR FRACTURE Physical Exam Vital Signs: Temp Pulse Resp BP Pulse Ox 98.5 F 73 17 133/48 H 95 09/16/19 08:00 09/16/19 08:00 09/16/19 08:00 09/16/19 08:00 09/16/19 08:00 Intake & Output 09/15/19 09/16/19 09/17/19 06:59 06:59 06:59 Intake Total 956 588 Balance 956 588 Weight 91.2 kg 92.2 kg General appearance: PRESENT: no acute distress, well-developed, well-nourished Head exam: PRESENT: atraumatic, normocephalic Respiratory exam: PRESENT: clear to auscultation cierra. ABSENT: rales, rhonchi, wheezes Cardiovascular exam: PRESENT: RRR. ABSENT: diastolic murmur, rubs, systolic murmur GI/Abdominal exam: PRESENT: normal bowel sounds, soft. ABSENT: distended, guarding, mass, organolmegaly, rebound, tenderness Musculoskeletal exam: PRESENT: other - Surgical wound looks clean. Neurovas cularly intact. Neurological exam: PRESENT: alert, awake, oriented to person, oriented to place, oriented to time, oriented to situation, CN II-XII grossly intact. ABSENT: mo tor sensory deficit Results Laboratory Results: 09/15/19 05:51 09/15/19 05:51 Impressions: Knee X-Ray 09/08/19 13:04 IMPRESSION: Fracture distal femur adjacent to knee prosthesis. Chest X-Ray 09/08/19 14:55 IMPRESSION: NO ACUTE RADIOGRAPHIC FINDING IN THE CHEST. Femur X-Ray 09/12/19 00:00 IMPRESSION: IMAGE(S) OBTAINED DURING PROCEDURE. Fluoroscopy 09/12/19 00:00 IMPRESSION: IMAGE(S) OBTAINED DURING PROCEDURE. Assessment and Plan - Diagnosis (1) Fracture of distal end of femur Qualifiers: Encounter type: initial encounter Fracture type: closed Fracture morphology: other fracture Laterality: left Qualified Code(s): S72.492A - Other fracture of lower end of left femur, initial encounter for closed fracture Is this a current diagnosis for this admission?: Yes Plan: Postop day #3 ORIF left distal femur prosthetic repair by Dr. Jovel Continue wound care. Continue PT. Opioid and non-opioid analgesics as needed. Monitor for respiratory depression. Patient would like to be transition to home with home health and home PT. Possible DC home tomorrow. (2) Anemia Qualifiers: Anemia type: iron deficiency Is this a current diagnosis for this admission?: Yes Plan: Likely acute blood loss due to hip fracture followed by hip surgery. Anemia panel confirms iron deficiency. H&H stable. Received IV Venofer x1. Resume ferrous sulfate upon discharge. Outpatient PCP follow-up. (3) Hypertension Qualifiers: Hypertension type: essential hypertension Qualified Code(s): I10 - Essential (primary) hypertension Is this a current diagnosis for this admission?: Yes Plan: Blood pressures are improved Provide adequate pain control. Continue Norvasc IV hydralazine as needed for blood pressure control. (4) Obesity (BMI 30.0-34.9) Is this a current diagnosis for this admission?: Yes Plan: BMI 34.7. Prior gastric bypass surgery. Dietary discretion and lifestyle modification are encouraged. (5) Tobacco dependence Is this a current diagnosis for this admission?: Yes Plan: Smoking cessation encouraged. Nicotine replacement therapies provided. Encourage pulmonary toilet.
[2019-09-16] MEDS: DOCUSATE SODIUM 100 MG CAPSULE PO SCH (11:32)
[2019-09-16] MEDS: MULTIVITAMINS W-IRON TABLET, CHEWABLE PO SCH (11:32)
[2019-09-16] MEDS: POLYETHYLENE GLYCOL 3350 POWDER 17 GM/1 PACKET PO SCH (11:32)
[2019-09-16] MEDS: CALCIUM CARBONATE 600 MG TABLET PO SCH (11:32)
[2019-09-16] MEDS: CHOLECALCIFEROL (D3) 1,000 UNIT (25 MCG) TABLET PO SCH (11:32)
[2019-09-16] MEDS: FERROUS SULFATE 325 MG TABLET PO SCH (11:32)
[2019-09-16] MEDS: FAMOTIDINE 20 MG TABLET PO SCH ×2 (11:32→22:17)
[2019-09-16] MEDS: NICOTINE 21 MG/24 HR PATCH.TD24 TD SCH (11:33)
--- NOTE | 2019-09-16 13:52 | PDOC PROGRESS REPORT ---
Subjective Progress Note for:: 09/16/19 Subjective:: Patient lying in bed comfortably pain controlled. No issues overnight. Denies chest pain or shortness of breath. Still having difficulty with physical therapy. Reason For Visit: RIGHT FEMUR FRACTURE Physical Exam Vital Signs: Temp Pulse Resp BP Pulse Ox 98.7 F 68 17 140/52 H 97 09/16/19 11:22 09/16/19 11:22 09/16/19 11:22 09/16/19 11:22 09/16/19 11:22 Intake & Output 09/15/19 09/16/19 09/17/19 06:59 06:59 06:59 Intake Total 956 588 118 Balance 956 588 118 Weight 91.2 kg 92.2 kg Musculoskeletal exam: PRESENT: other - Left lower extremity: Dressing clean/dry/intact no erythema or drainage. Moderate thigh swelling without change, intact plantarflexion/dorsiflexion. No sensory deficits. No calf tenderness. Results Laboratory Results: 09/15/19 05:51 09/15/19 05:51 Impressions: Knee X-Ray 09/08/19 13:04 IMPRESSION: Fracture distal femur adjacent to knee prosthesis. Chest X-Ray 09/08/19 14:55 IMPRESSION: NO ACUTE RADIOGRAPHIC FINDING IN THE CHEST. Femur X-Ray 09/12/19 00:00 IMPRESSION: IMAGE(S) OBTAINED DURING PROCEDURE. Fluoroscopy 09/12/19 00:00 IMPRESSION: IMAGE(S) OBTAINED DURING PROCEDURE. Assessment & Plan - Diagnosis (1) Fracture of distal end of femur Qualifiers: Encounter type: initial encounter Fracture type: closed Fracture morphology: other fracture Laterality: left Qualified Code(s): S72.492A - Other fracture of lower end of left femur, initial encounter for closed fracture Is this a current diagnosis for this admission?: Yes Plan: Status post retrograde IM nail left distal femur fracture 1. Physical therapy touchdown weightbearing 2. Enteric-coated aspirin DVT prophylaxis 3. Discharge planning home with home health. 4. Follow-up with Dr. Jovel as an outpatient. - Time Time Spent with patient: Less than 15 minutes
[2019-09-16] MEDS: AMLODIPINE BESYLATE 5 MG TABLET PO SCH (22:17)
[2019-09-17] MEDS: ACETAMINOPHEN 325 MG TABLET PO PRN ×2 (00:09→21:47)
[2019-09-17] MEDS: NICOTINE 21 MG/24 HR PATCH.TD24 TD SCH (09:58)
[2019-09-17] MEDS: POLYETHYLENE GLYCOL 3350 POWDER 17 GM/1 PACKET PO SCH (10:02)
[2019-09-17] MEDS: ASPIRIN 81 MG TABLET, CHEWABLE PO SCH (10:02)
[2019-09-17] MEDS: FAMOTIDINE 20 MG TABLET PO SCH ×2 (10:02→21:40)
[2019-09-17] MEDS: FERROUS SULFATE 325 MG TABLET PO SCH (10:02)
[2019-09-17] MEDS: DOCUSATE SODIUM 100 MG CAPSULE PO SCH (10:02)
[2019-09-17] MEDS: CHOLECALCIFEROL (D3) 1,000 UNIT (25 MCG) TABLET PO SCH (10:02)
[2019-09-17] MEDS: MULTIVITAMINS W-IRON TABLET, CHEWABLE PO SCH (10:02)
[2019-09-17] MEDS: CALCIUM CARBONATE 600 MG TABLET PO SCH (10:02)
--- NOTE | 2019-09-17 10:31 | PDOC PROGRESS REPORT ---
Subjective Progress Note for:: 09/17/19 Subjective:: ALFONSO MORRIS is a 74 year old female with a past medical history of g ranulomatosis disease (followed by Dr. Badillo), prior gastric bypass with continued morbid obesity, and tobacco dependence with continuous use who was admitted 09/08/2019 with left distal femur fracture. Now post op AF left distal femoral prosthetic fracture 09/14/2019. No acute events overnight. Comfortable stable no apparent distress. Denies any fever, chills, nausea, vomiting, diarrhea, constipation or any urinary symptoms. Complaining of mild pain in the left lower extremity, unable to ambulate, receiving physical therapy patient would like to be discharged home once she is ready to be discharged. 09/15/2019. No acute events overnight. Comfortably sitting with no apparent distress. Complaining of mild pain in her left lower extremity otherwise denies any fever, chills, nausea, vomiting, diarrhea, constipation or any urinary symptoms. 09/16/2019. No acute events overnight. Denies any fever, chills, nausea, vomiting, diarrhea, constipation or any urinary symptoms. Receiving physical therapy. Reporting mild improvement of ambulation. Denies any left lower extremity pain. 09/17/2019. No acute events overnight. Patient has not had much progress as far as her ambulation goes, patient very hesitant to go to rehab due to fear of coronavirus, patient thinks that her daughters will be able to take care of at home however upon my and primary nurse observation patient can hardly get out of the bed without maximum assistance. After extensive conversation patient has agreed to be transferred to short-term rehab where she can gain her strength and from there she can be transferred home. Discharge planning has been consulted. Denies any fever, chills, nausea, vomiting, diarrhea, constipation or any urinary symptoms. Reason For Visit: RIGHT FEMUR FRACTURE Physical Exam Vital Signs: Temp Pulse Resp BP Pulse Ox 98.4 F 66 18 150/53 H 97 09/17/19 07:31 09/17/19 07:31 09/17/19 07:31 09/17/19 07:31 09/17/19 07:31 Intake & Output 09/16/19 09/17/19 09/18/19 06:59 06:59 06:59 Intake Total 588 388 Balance 588 388 Weight 92.2 kg 89.4 kg General appearance: PRESENT: no acute distress, obese, well-developed, well- nourished Head exam: PRESENT: atraumatic, normocephalic Respiratory exam: PRESENT: clear to auscultation cierra. ABSENT: rales, rhonchi, wheezes GI/Abdominal exam: PRESENT: normal bowel sounds, soft. ABSENT: distended, guar ding, mass, organolmegaly, rebound, tenderness Musculoskeletal exam: PRESENT: other - Surgical wound looks clean. No sign of infection. Neurovascularly intact. Neurological exam: PRESENT: alert, awake, oriented to person, oriented to place, oriented to time, oriented to situation, CN II-XII grossly intact. ABSENT: motor sensory deficit Skin exam: PRESENT: dry, intact, warm. ABSENT: cyanosis, rash Results Laboratory Results: 09/15/19 05:51 09/15/19 05:51 Impressions: Knee X-Ray 09/08/19 13:04 IMPRESSION: Fracture distal femur adjacent to knee prosthesis. Chest X-Ray 09/08/19 14:55 IMPRESSION: NO ACUTE RADIOGRAPHIC FINDING IN THE CHEST. Femur X-Ray 09/12/19 00:00 IMPRESSION: IMAGE(S) OBTAINED DURING PROCEDURE. Fluoroscopy 09/12/19 00:00 IMPRESSION: IMAGE(S) OBTAINED DURING PROCEDURE. Assessment and Plan - Diagnosis (1) Fracture of distal end of femur Qualifiers: Encounter type: initial encounter Fracture type: closed Fracture morphology: other fracture Laterality: left Qualified Code(s): S72.492A - Other fracture of lower end of left femur, initial encounter for closed fracture Is this a current diagnosis for this admission?: Yes Plan: Postop day #4 ORIF left distal femur prosthetic repair by Dr. Jovel Continue wound care. Continue PT. Opioid and non-opioid analgesics as needed. Monitor for respiratory depression. Patient has agreed to be transferred to short-term rehab. Discharge planning has been consulted. Pending transfer to rehab. (2) Anemia Qualifiers: Anemia type: iron deficiency Is this a current diagnosis for this admission?: Yes Plan: Likely acute blood loss due to hip fracture followed by hip surgery. Anemia panel confirms iron deficiency. H&H stable. Received IV Venofer x1. Resume ferrous sulfate upon discharge. Outpatient PCP follow-up. (3) Hypertension Qualifiers: Hypertension type: essential hypertension Qualified Code(s): I10 - Essential (primary) hypertension Is this a current diagnosis for this admission?: Yes Plan: Blood pressures are improved Provide adequate pain control. Continue Norvasc IV hydralazine as needed for blood pressure control. (4) Obesity (BMI 30.0-34.9) Is this a current diagnosis for this admission?: Yes Plan: BMI 34.7. Prior gastric bypass surgery. Dietary discretion and lifestyle modification are encouraged. (5) Tobacco dependence Is this a current diagnosis for this admission?: Yes Plan: Smoking cessation encouraged. Nicotine replacement therapies provided. Encourage pulmonary toilet.
[2019-09-17] MEDS: HEPARIN SOD (PORCINE) 5,000 UNIT/ML 1 ML VIAL SUBCUT SCH ×2 (14:37→21:40)
[2019-09-17] MEDS: AMLODIPINE BESYLATE 5 MG TABLET PO SCH (21:40)
[2019-09-18] MEDS: HEPARIN SOD (PORCINE) 5,000 UNIT/ML 1 ML VIAL SUBCUT SCH (05:45)
[2019-09-18 08:11] LABS: ABSOLUTE BASOPHILS # (AUTO) 0.1 10^3/uL (0.0-0.2); ABSOLUTE EOSINOPHILS # (AUTO) 0.3 10^3/uL (0.0-0.6); ABSOLUTE LYMPHOCYTES (AUTO) 1.6 10^3/uL (0.5-4.7); ABSOLUTE MONOCYTES (AUTO) 0.6 10^3/uL (0.1-1.4); ABSOLUTE NEUT (AUTO) 5.8 10^3/uL (1.7-8.2); BASOPHILS % (AUTO) 1.5 % (0-2); EOSINOPHILS % (AUTO) 3.8 % (0-6); HEMATOCRIT 30.8 % (36.0-47.0); LYMPHOCYTES % (AUTO) 18.6 % (13-45); MEAN CORPUSCULAR HEMOGLOBIN 26.6 pg (27.0-33.4); MEAN CORPUSCULAR HGB CONC 32.6 g/dL (32.0-36.0); MEAN CORPUSCULAR VOLUME 82 fl (80-97); MONOCYTES % (AUTO) 7.1 % (3-13); PLATELET COUNT 320 10^3/uL (150-450); RED BLOOD COUNT 3.78 10^6/uL (3.72-5.28); TOTAL CELLS COUNTED % (AUTO) 100 %; WHITE BLOOD COUNT 8.5 10^3/uL (4.0-10.5)
[2019-09-18] MEDS ORDERED: CYANOCOBALAMIN (VITAMIN B-12) 1,000 MCG TABLET PO SCH (10:00)
[2019-09-18] MEDS: POLYETHYLENE GLYCOL 3350 POWDER 17 GM/1 PACKET PO SCH (10:10)
[2019-09-18] MEDS: FERROUS SULFATE 325 MG TABLET PO SCH (10:10)
[2019-09-18] MEDS: ASPIRIN 81 MG TABLET, CHEWABLE PO SCH (10:11)
[2019-09-18] MEDS: FAMOTIDINE 20 MG TABLET PO SCH (10:11)
[2019-09-18] MEDS: CHOLECALCIFEROL (D3) 1,000 UNIT (25 MCG) TABLET PO SCH (10:11)
[2019-09-18] MEDS: MULTIVITAMINS W-IRON TABLET, CHEWABLE PO SCH (10:11)
[2019-09-18] MEDS: CALCIUM CARBONATE 600 MG TABLET PO SCH (10:11)
[2019-09-18] MEDS: DOCUSATE SODIUM 100 MG CAPSULE PO SCH (10:12)
[2019-09-18] MEDS: NICOTINE 21 MG/24 HR PATCH.TD24 TD SCH (10:32)
--- NOTE | 2019-09-18 10:41 | PDOC TRANSFER SUMMARY ---
Impression - Admit/DC Date/PCP Admission Date/Primary Care Provider: 09/08/19 15:12 NIKOLAS BADILLO MD Discharge Date: 09/18/19 - Discharge Diagnosis (1) Fracture of distal end of femur Is this a current diagnosis for this admission?: Yes (2) Anemia Is this a current diagnosis for this admission?: Yes (3) Hypertension Is this a current diagnosis for this admission?: Yes (4) Obesity (BMI 30.0-34.9) Is this a current diagnosis for this admission?: Yes (5) Tobacco dependence Is this a current diagnosis for this admission?: Yes - Additional Information Resuscitation Status: Full Code Referrals: DEEPALI JOVEL MD [ACTIVE STAFF] - 09/22/19 10:45 am Prescriptions: Ferrous Sulfate [Piotr-Time] 325 mg PO DAILY 14 Days #14 tablet Rivaroxaban [Xarelto 10 mg Tablet] 10 mg PO DAILY 10 Days #10 tablet Home Medications: Calcium Carbonate [Calcium] 500 mg PO DAILY 09/08/19 Cholecalciferol (Vitamin D3) [Vitamin D3 1000 Unit Tablet] 1,000 unit PO DAILY 09/08/19 Cyanocobalamin (Vitamin B-12) [Vitamin B-12 1000 mcg Tablet] 1,000 mcg PO DAILY 09/08/19 Pediatric Multivitamin No.101 [Gummy] 1 tab PO DAILY 09/08/19 Ferrous Sulfate [Piotr-Time] 325 mg PO DAILY 14 Days #14 tablet 09/18/19 Rivaroxaban [Xarelto 10 mg Tablet] 10 mg PO DAILY 10 Days #10 tablet 09/18/19 History of Present Illiness History of Present Illness: ALFONSO MORRIS is a 74 year old female with a past medical history of granulomatosis disease (followed by Dr. Badillo), prior gastric bypass with continued morbid obesity, and tobacco dependence with continuous use who was admitted 09/08/2019 with left distal femur fracture. Hospital Course Hospital Course: (1) Fracture of distal end of femur Postop day #5 ORIF left distal femur prosthetic repair by Dr. Jovel Continue wound care. Continue PT. Opioid and non-opioid analgesics as needed. Monitor for respiratory depression. Patient needs 10 of DVT prophylaxis to decrease risk of thromboembolism post knee surgery. Continue rivaroxaban 10 mg p.o. daily for another 10 days. Patient is to follow-up with Dr. Jovel for further evaluation of her left knee. (2) Anemia Likely acute blood loss due to hip fracture followed by hip surgery. Anemia panel confirms iron deficiency. H&H stable. Received IV Venofer x1. Resume ferrous sulfate upon discharge. Patient needs close follow-up by PCP for evaluation of anemia and the need for continuation of ferrous sulfate. (3) Hypertension Blood pressures are improved Provide adequate pain control. Continue Norvasc IV hydralazine as needed for blood pressure control. (4) Obesity (BMI 30.0-34.9) BMI 34.7. Prior gastric bypass surgery. Dietary discretion and lifestyle modification are encouraged. (5) Tobacco dependence Smoking cessation encouraged. Nicotine replacement therapies provided. Physical Exam Vital Signs: Temp Pulse Resp BP Pulse Ox 98.9 F 78 17 156/57 H 99 09/18/19 08:00 09/18/19 08:00 09/18/19 08:00 09/18/19 08:00 09/18/19 08:00 Intake & Output 09/17/19 09/18/19 09/19/19 06:59 06:59 06:59 Intake Total 388 746 Balance 388 746 Weight 89.4 kg 89.1 kg General appearance: PRESENT: no acute distress, obese, well-developed, well- nourished Respiratory exam: PRESENT: clear to auscultation cierra. ABSENT: rales, rhonchi, wheezes Cardiovascular exam: PRESENT: RRR. ABSENT: diastolic murmur, rubs, systolic murmur Musculoskeletal exam: PRESENT: other - Left knee wound and juanito are clean, no sign of infection erythema or discharge. Neurovascularly intact. Neurological exam: PRESENT: alert, awake, oriented to person, oriented to place, oriented to time, oriented to situation, CN II-XII grossly intact. ABSENT: motor sensory deficit Results Laboratory Results: WBC 8.5 10^3/uL (4.0-10.5) 09/18/19 07:43 RBC 3.78 10^6/uL (3.72-5.28) 09/18/19 07:43 Hgb 10.0 g/dL (12.0-15.5) L 09/18/19 07:43 Hct 30.8 % (36.0-47.0) L 09/18/19 07:43 MCV 82 fl (80-97) 09/18/19 07:43 MCH 26.6 pg (27.0-33.4) L 09/18/19 07:43 MCHC 32.6 g/dL (32.0-36.0) 09/18/19 07:43 RDW 18.0 % (11.5-14.0) H 09/18/19 07:43 Plt Count 320 10^3/uL (150-450) 09/18/19 07:43 Lymph % (Auto) 18.6 % (13-45) 09/18/19 07:43 [place] % (Auto) 7.1 % (3-13) 09/18/19 07:43 Eos % (Auto) 3.8 % (0-6) 09/18/19 07:43 Baso % (Auto) 1.5 % (0-2) 09/18/19 07:43 Reticulocyte # 0.104 10^6/uL (0.028-0.122) 09/13/19 05:35 Absolute Neuts (auto) 5.8 10^3/uL (1.7-8.2) 09/18/19 07:43 Absolute Lymphs (auto) 1.6 10^3/uL (0.5-4.7) 09/18/19 07:43 Absolute Monos (auto) 0.6 10^3/uL (0.1-1.4) 09/18/19 07:43 Absolute Eos (auto) 0.3 10^3/uL (0.0-0.6) 09/18/19 07:43 Absolute Basos (auto) 0.1 10^3/uL (0.0-0.2) 09/18/19 07:43 Seg Neutrophils % 69.0 % (42-78) 09/18/19 07:43 Retic Count (auto) 3.13 % (0.66-2.85) H 09/13/19 05:35 Sodium 136.5 mmol/L (137-145) L 09/15/19 05:51 Potassium 3.8 mmol/L (3.6-5.0) 09/15/19 05:51 Chloride 105 mmol/L (98-107) 09/15/19 05:51 Carbon Dioxide 27 mmol/L (22-30) 09/15/19 05:51 Anion Gap 5 (5-19) 09/15/19 05:51 BUN 14 mg/dL (7-20) 09/15/19 05:51 Creatinine 0.62 mg/dL (0.52-1.25) 09/15/19 05:51 Est GFR ( Amer) > 60 (>60) 09/15/19 05:51 Est GFR (MDRD) Non-Af > 60 (>60) 09/15/19 05:51 Glucose 104 mg/dL (75-110) 09/15/19 05:51 Hemoglobin A1c % 5.4 % (4.7-6.0) 09/09/19 05:42 Calcium 8.7 mg/dL (8.4-10.2) 09/15/19 05:51 Iron 27.8 ug/dL (37-170) L 09/13/19 05:35 TIBC 306 ug/dL (250-450) 09/13/19 05:35 % Saturation 9 % 09/13/19 05:35 Transferrin 202.52 mg/dL (206.00-381.00) L 09/13/19 05:35 Ferritin 23.00 ng/mL (11.1-264.0) 09/13/19 05:35 Total Bilirubin 0.4 mg/dL (0.2-1.3) 09/08/19 15:49 Direct Bilirubin 0.0 mg/dL (0.0-0.4) 09/08/19 15:49 Neonat Total Bilirubin Not Reportable 09/08/19 15:49 Neonat Direct Bilirubin Not Reportable 09/08/19 15:49 Neonat Indirect Bili Not Reportable 09/08/19 15:49 AST 30 U/L (14-36) 09/08/19 15:49 ALT 12 U/L (<35) 09/08/19 15:49 Alkaline Phosphatase 104 U/L (38-126) 09/08/19 15:49 Total Protein 6.4 g/dL (6.3-8.2) 09/08/19 15:49 Albumin 3.4 g/dL (3.5-5.0) L 09/08/19 15:49 Vitamin B12 > 1000.0 pg/mL (239-931) H 09/13/19 05:35 Folate 13.20 ng/mL (>2.76) 09/13/19 05:35 TSH 3.22 uIU/mL (0.47-4.68) 09/09/19 05:42 Urine Color YELLOW 09/08/19 15:49 Urine Appearance CLEAR 09/08/19 15:49 Urine pH 7.0 (5.0-9.0) 09/08/19 15:49 Ur Specific [place] 1.014 09/08/19 15:49 Urine Protein NEGATIVE mg/dL (NEGATIVE) 09/08/19 15:49 Urine Glucose (UA) NEGATIVE mg/dL (NEGATIVE) 09/08/19 15:49 Urine Ketones NEGATIVE mg/dL (NEGATIVE) 09/08/19 15:49 Urine Blood NEGATIVE (NEGATIVE) 09/08/19 15:49 Urine Nitrite NEGATIVE (NEGATIVE) 09/08/19 15:49 Urine Bilirubin NEGATIVE (NEGATIVE) 09/08/19 15:49 Urine Urobilinogen 4.0 mg/dL (<2.0) H 09/08/19 15:49 Ur Leukocyte Esterase NEGATIVE (NEGATIVE) 09/08/19 15:49 Urine WBC (Auto) 0 /HPF 09/08/19 15:49 Urine RBC (Auto) 2 /HPF 09/08/19 15:49 Urine Mucus (Auto) RARE /LPF 09/08/19 15:49 Urine Ascorbic Acid NEGATIVE (NEGATIVE) 09/08/19 15:49 SARS-CoV-2 (PCR) NEGATIVE (NEGATIVE) 09/09/19 11:07 Blood Type A POSITIVE 09/12/19 13:49 Antibody Screen TNP 09/12/19 13:49 Ab Screen Tube Method NEGATIVE 09/12/19 13:49 Impressions: Knee X-Ray 09/08/19 13:04 IMPRESSION: Fracture distal femur adjacent to knee prosthesis. Chest X-Ray 09/08/19 14:55 IMPRESSION: NO ACUTE RADIOGRAPHIC FINDING IN THE CHEST. Femur X-Ray 09/12/19 00:00 IMPRESSION: IMAGE(S) OBTAINED DURING PROCEDURE. Fluoroscopy 09/12/19 00:00
[2019-09-18 11:21] VITALS: BP 148/51
== END 2019-09-18 12:58 | DRG 481 ==
LOC: ER 12:17 → EH 15:12 → 4S 16:47
PROVIDERS: ADMIT Hospitalist; ATTEND Internal Medicine
PROC: 0QSC06Z Reposition Left Lower Femur with Intramedullary Internal Fixation Device, Open Approach (ICD-10-PCS; principal; 2019-09-12 13:30)
DX: S72.492A Other fracture of lower end of left femur, initial encounter for closed fracture (principal); D62 Acute posthemorrhagic anemia; I27.20 Pulmonary hypertension, unspecified; Z68.34 Body mass index [BMI] 34.0-34.9, adult; D71 Functional disorders of polymorphonuclear neutrophils; F17.210 Nicotine dependence, cigarettes, uncomplicated; D50.9 Iron deficiency anemia, unspecified; W19.XXXA Unspecified fall, initial encounter; Z96.652 Presence of left artificial knee joint; I10 Essential (primary) hypertension; E66.01 Morbid (severe) obesity due to excess calories; M19.90 Unspecified osteoarthritis, unspecified site; Z88.6 Allergy status to analgesic agent; Z88.0 Allergy status to penicillin; Z98.84 Bariatric surgery status; Z79.01 Long term (current) use of anticoagulants; Z79.899 Other long term (current) drug therapy; Y92.010 Kitchen of single-family (private) house as the place of occurrence of the external cause; Z71.3 Dietary counseling and surveillance; Z71.6 Tobacco abuse counseling
CPT/HCPCS: 01360; 36415; 71045; 80048; 80053; 81001; 82607; 82728; 82746; 83036; 83540; 83550; 84443; 84466; 85025; 85027; 85045; 86850; 86900; 86901; 87635; 93005; 93010; 93306; 94799; 96374; 96375; 99285; C1713; C1769; C9803; J0330; J1100; J1644; J1756; J2250; J2270; J2405; J2704; J3010; J3360; J3370; J3490; J7030; J7060; J7120